=== PATIENT | male | born 1945 | race Caucasian/White ===

== ENCOUNTER 2016-04-04 06:34 | Observation (INO) | payer MEDICARE, OTHER ==
--- NOTE | ~2016-04-04 | HP ---
History And Physical [place] [id number] [facility] [place]. [address] NAME: ANAHY COTTER : 49 STATUS : ADM Марина PAT#: [id number] AGE: 70 ADM/REG DATE : 04/04/16 MR#: [id number] REPORT SERV DATE: 04/04/16 DICTATED BY: JESSE HERNADEZ DATE: 04/04/16 REPORT STATUS : Draft TRANSCRIBED BY: MODEboni DATE: 04/04/16 DATE OF ADMISSION: 04/04/2016 CHIEF COMPLAINT: Cough and wheezing. BRIEF HISTORY OF PRESENT ILLNESS: The patient is a 70-year-old white male who presented to [facility]'s Emergency Room early this morning with complaints of having cough that has been going on for 24 hours that started all of a sudden. He denied he has had some productive sputum, yellowish in color. He denied any fever or chills. He has not had any nausea or vomiting. He said he has been noticing a lot of wheezing mainly on the left side. He denied any new chest pain. He has had chronic chest pain due to his ischemic cardiomyopathy. When he came to the emergency room, he was saturating normal about 94% on room air. However, the emergency room physician felt that he could not go home because of his wheezing. So he has been referred to the Hospitalist Service for further treatment and evaluation. REVIEW OF SYSTEMS: Twelve-point review of systems was obtained from the patient and is negative except what is noted in the HPI. PAST MEDICAL HISTORY: Obtained from the patient and has reviewed from old medical records. The patient has coronary artery disease, chronic kidney disease stage 3, [id number] MR, history of lung cancer status post lung resection. He has testicular cancer, status post resection. Dyslipidemia. Bipolar disorder. COPD. Peripheral vascular disease with an iliac stent. He has hyperlipidemia. 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 He had prior myocardial infarction. He has ischemic cardiomyopathy, diverticulosis, gastroesophageal reflux, chronic systolic congestive heart failure that has been compensated. He is hard-of- hearing. Renal calculi and Moreau's esophagus. PRIOR SURGICAL HISTORY: Significant for coronary artery bypass graft in 1993 and iliac stent, left lower lobectomy for non-small cell cancer in T2a N0 M0. Previous cholecystectomy, ERCP with a biliary stent. 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 He is a former smoker of up to two packs per day for 45 years. ALLERGIES: NO KNOWN DRUG ALLERGIES. HOME MEDICATIONS: Lasix 80 mg once daily, Coreg 12.5 mg twice daily, Plavix 75 mg once daily, Nitrostat 0.4 sublingual p.r.n., Crestor 10 mg once daily, Zetia 10 mg once daily, Ranexa 500 mg twice daily, clonidine 0.1 mg twice daily, diltiazem ER 240 mg once daily, Dexilant 60 mg twice daily, Advair Diskus 250/50 inhalation 1 puff daily, Spiriva Respimat 2.5 mg daily, Ventolin HFA 90 mcg as needed, Xanax 0.5 mg three times and as needed for panic attacks. Risperdal 1 mg once daily, testosterone injection 400 mg bi-monthly, aspirin 81 mg once daily, vitamin D 5000 units once daily, probiotics once daily, folic acid plus History And Physical [address] [address] NAME: ANAHY COTTER : 49 STATUS : ADM Марина PAT#: [id number] AGE: 70 ADM/REG DATE : 04/04/16 MR#: [id number] REPORT SERV DATE: 04/04/16 DICTATED BY: JESSE HERNADEZ DATE: 04/04/16 REPORT STATUS : Draft TRANSCRIBED BY: PAZ DATE: 04/04/16 once daily, and magnesium oxide 400 mg twice daily. PHYSICAL EXAMINATION: GENERAL: White male, sitting on the bed, appears to be in no obvious respiratory distress but he is awake, alert. He is oriented. VITAL SIGNS: Blood pressure is 132/67, saturation of 95% on room air, temperature is 97.5 and a pulse of 69. HEENT: Head is normocephalic, atraumatic. Pupils are equal, round, and reactive to light. Extraocular muscles are intact. Sclerae anicteric. Conjunctivae normal. Oropharynx without lesion. Tongue protrusion midline. Uvula midline. NECK: Supple. No jugular venous distention. No carotid bruits or thyromegaly is appreciated. No lymphadenopathy in the neck is palpable. HEART: Distant PMI, just inside the anterior axillary line. Regular rate and rhythm. No significant gallops or rubs. Soft 2/6 systolic murmur, best heard in the precordial space. LUNGS: Diffuse bilateral wheezing with no evidence of any focal consolidation. Rhonchi are noted. No rales or crackles. ABDOMEN: Obese, soft, nontender, good bowel sounds. No rebound or guarding. No organomegaly. EXTREMITIES: Without cyanosis, clubbing. Trace flynn-ankle edema is noted. NEUROLOGIC: Cranial nerves 2 through 12 are normal. Strength is equal and symmetrical. Sensory exam appears to be intact. LABS: Chest x-ray, my own interpretation, shows no evidence of any acute cardiopulmonary disease. Cardiac silhouette appears to be normal. No evidence of pleural effusion. ABG was not done in the emergency room. CMP: Sodium 136, potassium 3.6, chloride 96, bicarb 28, BUN 20, creatinine 1.98, glucose is 104. Total protein is normal. Calcium is normal. Albumin is 3.4. Liver function studies are normal. Influenza was negative. CBC: White count is 5.8, hemoglobin 13.5, hematocrit of 41, platelet count is 160,000. No left shift. Blood cultures sent from the emergency room. EKG, normal sinus rhythm, biphasic P wave in the lateral leads. Left axis deviation, nonspecific ST-T wave changes. IMPRESSION: 1. Acute bronchitis. 2. Acute exacerbation of chronic obstructive pulmonary disease. 3. Acute on chronic kidney injury. 4. Ischemic cardiomyopathy. 5. Bipolar disorder. 6. Hypertension. 7. Hyperlipidemia. 8. Gastroesophageal reflux. 9. History of lung cancer. PLAN: The patient will be admitted for observation. Aggressive nebulizing treatments will be given. IV Solu-Medrol will be given. IV Levaquin will be given despite the fact that he had had prior history of C. difficile colitis. We will continue his probiotics while we treat his upper respiratory tract infection. Antitussives will be given. Home medications will be addressed when available from the pharmacy. Full code. History And Physical [place] [id number] [facility] [place]. [address] NAME: ANAHY COTTER : 49 STATUS : ADM Марина PAT#: [id number] AGE: 70 ADM/REG DATE : 04/04/16 MR#: [id number] REPORT SERV DATE: 04/04/16 DICTATED BY: JESSE HERNADEZ DATE: 04/04/16 REPORT STATUS : Draft TRANSCRIBED BY: MODEboni DATE: 04/04/16 MAGDALENO/PAZ Jesse Hernadez M.D. / [id number] CC: Ubaldo Ferrell M.D.
--- NOTE | ~2016-04-04 | DS ---
Discharge Summary [facility] [address] [place]. [address] NAME: ANAHY COTTER : 49 STATUS : DIS Марина PAT#: [id number] AGE: 70 ADM/REG DATE : 04/04/16 MR#: [id number] REPORT SERV DATE: 04/06/16 DICTATED BY: JR. GOMEZ WILLIAM JOHN DATE: 04/05/16 REPORT STATUS : Draft TRANSCRIBED BY: PAZ DATE: 04/05/16 ADMISSION DATE: 04/04/2016 DISCHARGE DATE: 04/05/2016 DISCHARGE DIAGNOSES: Include: 1. Acute bronchitis. 2. Acute exacerbation of chronic obstructive pulmonary disease. 3. Acute on chronic kidney disease. 4. Ischemic cardiomyopathy. 5. Bipolar disorder. 6. Hypertension. 7. Hyperlipidemia. 8. Gastroesophageal reflux disease. 9. History of lung cancer, status post lobectomy. OPERATIONS, PROCEDURES, AND TREATMENTS: Include: 1. Portable chest x-ray done 04/04/2016, which showed stable surgical changes in left lung with left apical staple lines and probable scarring in the mid left lung. No new air space with opacification was seen. 2. PA and lateral chest x-ray done 04/04/2016 showed cardiomegaly with prior CABG changes. No other changes. 3. Blood cultures x2 are negative at this time. DISCHARGE MEDICATIONS: Include: 1. Aspirin 81 mg orally daily. 2. Coreg 12.5 mg orally twice a day. 3. Plavix 75 mg daily. 4. Diltiazem 240 mg orally daily. 5. Zetia 10 mg orally daily. 6. Lasix 80 mg orally daily. 7. Levaquin 750 mg orally daily for four more days. 8. Dexilant 60 mg orally twice a day. 9. Ranexa 500 mg orally twice a day. 10.Risperdal 1 mg orally daily. 11.Clonidine 0.1 mg orally at bedtime. 12.Advair Diskus one puff daily. 13.Albuterol high-flow aerosol two puffs as needed. 14.Albuterol nebulized every six hours as needed. 15.Nitroglycerin 0.4 mg sublingually as needed. 16.Rosuvastatin 10 mg orally at bedtime. 17.Xanax 0.5 mg orally at bedtime as needed. 18.Vitamin D 5000 units orally daily. 19.Mag-Ox 400 mg orally daily. 20.Spiriva Respimat 2.5 mcg inhaled daily. 21.Prednisone 40 mg orally daily for two days, then 20 for two days, then 10 for two days, then none. Discharge Summary [facility] [address] [place]. [address] NAME: ANAHY COTTER : 49 STATUS : DIS Марина PAT#: [id number] AGE: 70 ADM/REG DATE : 04/04/16 MR#: [id number] REPORT SERV DATE: 04/06/16 DICTATED BY: JR. GOMEZ WILLIAM JOHN DATE: 04/05/16 REPORT STATUS : Draft TRANSCRIBED BY: MODL DATE: 04/05/16 22.Levaquin 750 mg orally daily for four more days. HOSPITAL COURSE: The patient was a 70-year-old white male, presented to [facility] emergency room on 04/04/2016 with complaint of cough that had been going on for 24 hours. He had some production of yellow sputum. He denies any fevers or chills, no nausea or vomiting, and a lot of wheezing mainly on the left side, he had chronic chest pain due to ischemic cardiomyopathy. Please see Dr. Hernadez's excellent dictated history and physical for complete details of the admission history, physical, and presenting data. The patient was admitted to the hospital. He was given nebulizer treatments, IV steroids, and started empirically on Levaquin. The patient felt dramatically better on hospital day #2. He required no oxygen. The patient will be discharged home on a quick steroid taper and oral Levaquin and will follow up with his primary care physician, Ernesto Cheema, in two weeks. For discharge exam and laboratory, please see daily progress note. DISCHARGE DIET: Regular. ACTIVITY: As tolerated. WJF/PAZ Ramone Gomez Jr, MD / [id number] CC: Ramone Gomez Jr, MD Christopher Haddock, M.D.
[2016-04-04 06:29] LABS: BASOPHILS 0.3 %; BASOPHILS ABSOLUTE 0.02 10/3/uL (0.0-0.16); EOSINOPHILS ABSOLUTE 0.06 10/3/uL (0.0-0.53); ER CBC TAT 0 Hrs 10 Mins; HEMOGLOBIN 13.5 g/dL (13.6-17.8); IMMATURE GRANULOCYTES 0.3 %; IMMATURE GRANULOCYTES ABSOLUTE 0.02 10/3/uL (0.0-0.11); LYMPHOCYTES 10.6 %; LYMPHOCYTES ABSOLUTE 0.61 10/3/uL (0.67-4.30); MEAN CORPUS HGB CONC 32.5 g/dL (32.0-36.0); MEAN CORPUSCULAR HEMOGLOB 27.6 pg (26.0-34.0); MEAN PLATELET VOLUME 8.8 fL (9.2-13.0); MONOCYTES 7.6 %; MONOCYTES ABSOLUTE 0.44 10/3/uL (0.21-1.20); NEUTROPHILS 80.2 %; NEUTROPHILS ABSOLUTE 4.63 10/3/uL (2.02-8.40); PLATELET COUNT 160 10/3/uL (150-400); RBC DISTRIBUTION WIDTH 16.7 % (12.0-16.0); WHITE BLOOD CELLS 5.8 10/3/uL (4.5-10.5)
[2016-04-04 06:30] LABS: HEMATOCRIT 41.6 % (40.0-51.0); MANUAL DIFF NO %; MEAN CORPUSCULAR VOLUME 84.9 fL (80-100)
[~2016-04-04 06:34] MED LIST: ACET500CAP PO; ADVAIR250 INH; AFEDITAB30 MG PO; AMB10 PO; ASAB PO; AUG875 PO; CARDCD240 PO; CARTIA XT240 MG/24 PO; CAT1 PO; CENTRUM TAB1 TAB PO; CIP5 PO; CO Q-10100 MG PO; COENZYME Q10400 MG PO; COQ-10200 MG OR; COQ10100 MG OR; COQ10100 MG PO; COREG12 PO; COREG6 PO; CRESTOR10 PO; DEP250 PO; DEPAKOT250 PO; DEPAKOT500 PO; DEPAKOTEER PO; DEPO-TESTOS200 MG/M1 IM; DEPO-TESTOS200 MG/ML IM; FISH OIL1200 MG PO; FLAG500TAB PO; FOLINIC PLUS PO; FOLTANX TABLET1 EACH PO; IMDUR30 PO; KAPIDEX30 MG PO; KAPIDEX60 MG PO; L40 PO; L80 PO; LEVAQUIN5T PO; LEVAQUIN750 MG PO; LIBRAX PO; LIVALO; MAGOX4 PO; MELA3 PO; METANX PO; MUCOMYST; MUCOMYST PO; MULTIPLE VIT PO; NEUR100 PO; NEUR300 PO; NIACIN 500 PO; NIACOR500 MG PO; NITROQUICK0.4 MG SL; NITROSTAT0.4 MG SL; NORV5 PO; OXYGEN 2L; PLAVIX PO; PRAVACHOL40 MG PO; PROBIOTIC PO; PROTONIX PO; RAN500 PO; RED YEAS1 OR; RED YEAS1 PO; RISP1 PO; RISPERDAL0.25 MG PO; SAPHRIS10 MG SL; SAPHRIS5 MG SL; SPIRIVA INH; SPIRIVA RESPIMAT INH; TESTOST ENA200 MG/ML IM; TESTOSTERONE INJ; TESTOSTERONE INJECTI; TRILIPIX135 MG PO; VALIUM10 MG PO; VENTOLIN HFA INH; VIT B COMPLEX; VITAMIN D31000 UNIT PO; X5 PO; ZETIA PO; [UNRECOGNIZED DRUG - OTHER]; [UNRECOGNIZED DRUG - OTHER]
[2016-04-04 06:38] LABS: INFLUENZA A SCREEN NEGATIVE (NEGATIVE); INFLUENZA B SCREEN NEGATIVE (NEGATIVE)
[2016-04-04 06:42] LABS: A/G RATIO 0.8 (0.7-1.9); ALBUMIN 3.4 G/DL (3.5-5.0); ALKALINE PHOSPHATASE 77 U/L (45-117); CALCIUM, SERUM 8.7 MG/DL (8.5-10.4); CHLORIDE, SERUM 94 MMOL/L (96-112); CO2 (CARBON DIOXIDE) 28 MMOL/L (24-34); CREATININE 1.98 MG/DL (0.70-1.30); GFR AFRICAN AMERICAN 39 ML/MIN (>=60); GFR NON AFRICAN AMERICAN 34 ML/MIN (>=60); GLOBULIN 4.5 G/DL (2.5-4.1); GLUCOSE, SERUM 104 MG/DL (60-99); POTASSIUM, SERUM 3.6 MMOL/L (3.5-5.3); SGOT(AST) 41 U/L (5-40); SGPT(ALT) 41 U/L (5-65); SODIUM, SERUM 136 MMOL/L (135-148); TOTAL BILIRUBIN 0.6 MG/DL (0-1.2)
[2016-04-04 06:44] LABS: BUN (BLOOD UREA NITROGEN) 20 MG/DL (6-23); TOTAL PROTEIN 7.9 G/DL (6.0-8.5)
[2016-04-04] MEDS ORDERED: COREG12 PO (09:15)
[2016-04-04] MEDS ORDERED: L40 PO (09:15)
[2016-04-04] MEDS ORDERED: ZETIA PO (09:16)
[2016-04-04] MEDS ORDERED: PLAVIX PO (09:16)
[2016-04-04] MEDS ORDERED: NITROSTAT0.4 MG SL (09:16)
[2016-04-04] MEDS ORDERED: CRESTOR10 PO (09:16)
[2016-04-04] MEDS ORDERED: RAN500 PO (09:16)
[2016-04-04] MEDS ORDERED: KAPIDEX60 MG PO (09:17)
[2016-04-04] MEDS ORDERED: ADVAIR250 INH (09:17)
[2016-04-04] MEDS ORDERED: CAT1 PO (09:17)
[2016-04-04] MEDS ORDERED: DILT-XR240 MG PO (09:17)
[2016-04-04] MEDS ORDERED: X5 PO (09:18)
[2016-04-04] MEDS ORDERED: VENTOLIN HFA PO (09:18)
[2016-04-04] MEDS ORDERED: RISP1 PO (09:19)
[2016-04-04] MEDS ORDERED: ASAB PO (09:19)
[2016-04-04] MEDS ORDERED: TESTOST CYP100 MG/ML IM (09:19)
[2016-04-04] MEDS ORDERED: D 5000 PO (09:20)
[2016-04-04] MEDS ORDERED: FOLINIC PLUS PO (09:20)
[2016-04-04] MEDS ORDERED: MAGOX4 PO (09:20)
[2016-04-04] MEDS ORDERED: ALIGN4 MG PO (09:20)
[2016-04-04] MEDS ORDERED: ALBUTEROL5 INH (09:21)
[2016-04-04] MEDS ORDERED: SPIRIVA RESPIMAT INH (09:22)
[2016-04-04 15:26] LABS: PROCALCITONIN 0.06 ng/mL (<0.5)
[2016-04-05 04:11] LABS: BASOPHILS 0 %; EOSINOPHILS 0 %; HEMATOCRIT 37.5 % (40.0-51.0); HEMOGLOBIN 12.3 g/dL (13.6-17.8); IMMATURE GRANULOCYTES 0.2 %; IMMATURE GRANULOCYTES ABSOLUTE 0.01 10/3/uL (0.0-0.11); LYMPHOCYTES 10.4 %; LYMPHOCYTES ABSOLUTE 0.56 10/3/uL (0.67-4.30); MEAN CORPUS HGB CONC 32.8 g/dL (32.0-36.0); MEAN PLATELET VOLUME 8.5 fL (9.2-13.0); MONOCYTES 4.5 %; MONOCYTES ABSOLUTE 0.24 10/3/uL (0.21-1.20); NEUTROPHILS 84.9 %; NEUTROPHILS ABSOLUTE 4.56 10/3/uL (2.02-8.40); PLATELET COUNT 151 10/3/uL (150-400); RBC DISTRIBUTION WIDTH 16.3 % (12.0-16.0); RED CELL COUNT 4.56 10/6/uL (4.7-6.1); WHITE BLOOD CELLS 5.4 10/3/uL (4.5-10.5)
[2016-04-05 04:13] LABS: MANUAL DIFF NO %; MEAN CORPUSCULAR VOLUME 82.2 fL (80-100)
[2016-04-05 04:25] LABS: ALBUMIN 3.2 G/DL (3.5-5.0); BUN (BLOOD UREA NITROGEN) 21 MG/DL (6-23); CALCIUM, SERUM 8.6 MG/DL (8.5-10.4); CHLORIDE, SERUM 100 MMOL/L (96-112); CO2 (CARBON DIOXIDE) 26 MMOL/L (24-34); CREATININE 1.63 MG/DL (0.70-1.30); GFR AFRICAN AMERICAN 49 ML/MIN (>=60); GFR NON AFRICAN AMERICAN 43 ML/MIN (>=60); PHOSPHORUS, SERUM 2.1 MG/DL (2.5-4.5); POTASSIUM, SERUM 4.2 MMOL/L (3.5-5.3); SODIUM, SERUM 136 MMOL/L (135-148)
[2016-04-05 04:28] LABS: GLUCOSE, SERUM 173 MG/DL (60-99)
[2016-04-05] MEDS ORDERED: LEVAQUIN750 MG PO (12:42)
[2016-04-05] MEDS ORDERED: P20 PO (12:45)
[2016-04-21] MEDS ORDERED: D 5000 PO (13:39)
[2016-07-20] MEDS ORDERED: COREG3 PO (14:03)
[2016-07-20] MEDS ORDERED: L40 PO (14:03)
[2016-07-20] MEDS ORDERED: PLAVIX PO (14:05)
[2016-07-20] MEDS ORDERED: NITROSTAT0.4 MG SL (14:06)
[2016-07-20] MEDS ORDERED: RAN500 PO (14:07)
[2016-07-20] MEDS ORDERED: CRESTOR10 PO (14:07)
[2016-07-20] MEDS ORDERED: ZETIA PO (14:07)
[2016-07-20] MEDS ORDERED: TIAZAC PO (14:08)
[2016-07-20] MEDS ORDERED: KAPIDEX60 MG PO (14:08)
[2016-07-20] MEDS ORDERED: FLOMAX4 PO (14:09)
[2016-07-20] MEDS ORDERED: SPIRIVA RESPIMAT INH (14:10)
[2016-07-20] MEDS ORDERED: ADVAIR250 INH (14:10)
[2016-07-20] MEDS ORDERED: VENTOLIN HFA INH (14:11)
[2016-07-20] MEDS ORDERED: X5 PO ×2 (14:12→14:13)
[2016-07-20] MEDS ORDERED: TESTOSTERONE INJ SC (14:15)
[2016-07-20] MEDS ORDERED: ALBUTEROL0.083 % INH (14:16)
[2016-07-20] MEDS ORDERED: ASAB PO (14:16)
[2016-07-20] MEDS ORDERED: VITAMIN D31000 UNIT PO (14:16)
[2016-07-20] MEDS ORDERED: ALIGN4 MG PO (14:17)
[2016-07-20] MEDS ORDERED: FOLBEE PO (14:19)
[2016-07-20] MEDS ORDERED: MAGOX4 PO (14:19)
[2016-07-27] MEDS ORDERED: L40 PO (10:11)
[2016-07-27] MEDS ORDERED: COREG6 PO (10:11)
[2016-08-27] MEDS ORDERED: TOPXL25 PO (11:48)
[2016-08-27] MEDS ORDERED: PROAMAT5 PO (11:49)
[2016-08-27] MEDS ORDERED: [UNRECOGNIZED DRUG - OTHER] (11:55)
[2016-08-27] MEDS ORDERED: MEDS (12:22)
[2016-08-27] MEDS ORDERED: X5 PO (12:27)
[2016-10-08] MEDS ORDERED: L20 PO (21:55)
[2016-10-08] MEDS ORDERED: PROAMATINE10 MG PO (21:56)
[2016-10-08] MEDS ORDERED: TOPXL25 PO (21:56)
[2016-10-08] MEDS ORDERED: PLAVIX PO (21:57)
[2016-10-08] MEDS ORDERED: NITROSTAT0.4 MG SL (21:57)
[2016-10-08] MEDS ORDERED: ZETIA PO (21:58)
[2016-10-08] MEDS ORDERED: RAN500 PO (21:58)
[2016-10-08] MEDS ORDERED: CRESTOR10 PO (21:58)
[2016-10-08] MEDS ORDERED: FLOMAX4 PO (21:59)
[2016-10-08] MEDS ORDERED: KAPIDEX60 MG PO (21:59)
[2016-10-08] MEDS ORDERED: ADVAIR250 INH (21:59)
[2016-10-08] MEDS ORDERED: VENTOLIN HFA INH (22:00)
[2016-10-08] MEDS ORDERED: SPIRIVA RESPIMAT INH (22:00)
[2016-10-08] MEDS ORDERED: X5 PO ×2 (22:01→22:02)
[2016-10-08] MEDS ORDERED: TESTOST CYP100 MG/ML IM (22:07)
[2016-10-08] MEDS ORDERED: HALF81 PO (22:11)
[2016-10-08] MEDS ORDERED: ALBUTEROL0.083 % INH (22:11)
[2016-10-08] MEDS ORDERED: VITAMIN D31000 UNIT PO (22:12)
[2016-10-08] MEDS ORDERED: PROBIOTIC PO (22:12)
[2016-10-08] MEDS ORDERED: [UNRECOGNIZED DRUG - OTHER] PO (22:14)
[2016-10-08] MEDS ORDERED: MAGOX4 PO (22:14)
[2016-10-08] MEDS ORDERED: MYRBETRIQ50 MG PO (22:16)
[2016-10-08] MEDS ORDERED: SEPTRA DS1 TAB PO (22:17)
[2016-10-08] MEDS ORDERED: LAM250 PO (22:18)
[2016-10-18] MEDS ORDERED: FLUCON2 PO (15:30)
[2016-10-18] MEDS ORDERED: DSS PO (15:30)
[2016-10-18] MEDS ORDERED: NEUR100 PO (15:32)
[2016-10-18] MEDS ORDERED: CORTOTSUSP OT (15:38)
[2016-10-18] MEDS ORDERED: MIRALAX POWDER1 PKT PO (15:38)
[2016-10-18] MEDS ORDERED: FLORASTOR250 MG PO (15:39)
[2016-10-18] MEDS ORDERED: SENTAB PO (15:40)
[2016-10-18] MEDS ORDERED: VALTREX5 PO (15:42)
[2016-10-18] MEDS ORDERED: P10 PO ×3 (15:45→15:57)
[2016-10-18] MEDS ORDERED: P20 PO ×2 (15:52→15:56)
[2016-10-18] MEDS ORDERED: P5 PO (15:58)
== END 2016-04-05 14:20 | disposition home or self-care (01) ==
LOC: ER 06:34 → CDU2 09:11 → CDU1 09:32
PROVIDERS: Emergency Medicine; Internal Medicine
DX: J44.0 Chronic obstructive pulmonary disease with (acute) lower respiratory infection (principal); J20.9 Acute bronchitis, unspecified; J44.1 Chronic obstructive pulmonary disease with (acute) exacerbation; N17.9 Acute kidney failure, unspecified; N18.9 Chronic kidney disease, unspecified; I13.10 Hypertensive heart and chronic kidney disease without heart failure, with stage 1 through stage 4 chronic kidney disease, or unspecified chronic kidney disease; F31.9 Bipolar disorder, unspecified; E78.5 Hyperlipidemia, unspecified; K21.9 Gastro-esophageal reflux disease without esophagitis; H91.90 Unspecified hearing loss, unspecified ear; E78.00 Pure hypercholesterolemia, unspecified; K44.9 Diaphragmatic hernia without obstruction or gangrene; D64.9 Anemia, unspecified; Z79.82 Long term (current) use of aspirin; Z79.02 Long term (current) use of antithrombotics/antiplatelets; Z79.899 Other long term (current) drug therapy; Z79.52 Long term (current) use of systemic steroids; Z98.890 Other specified postprocedural states; Z87.442 Personal history of urinary calculi
CPT/HCPCS: 71010; 71020; 80053; 80069; 83880; 84145; 85025; 87040; 87449; 87804; 93005; 94640; 96365; 96372; 96375; 99285; A9270-GY; G0378; J1956; J2930

== ENCOUNTER 2016-04-06 23:34 | Inpatient (IN) | payer MEDICARE, OTHER ==
--- NOTE | ~2016-04-06 | HP ---
History And Physical [facility] [address] [place]. [address] NAME: ANAHY COTTER : 49 STATUS : ADM Марина PAT#: [id number] AGE: 70 ADM/REG DATE : 04/07/16 MR#: [id number] REPORT SERV DATE: 04/07/16 DICTATED BY: ANGEL COLE DATE: 04/07/16 REPORT STATUS : Draft TRANSCRIBED BY: MODEboni DATE: 04/07/16 DATE OF ADMISSION: 04/06/2016 POINT OF ENTRY: [facility] Emergency Department. PRIMARY INTELLECTUAL PROPERTY MANAGER: Dr. Chris Dick. PRIMARY PIANO REFINISHER: Dr. Matthew. CHIEF COMPLAINT: Shortness of breath, cough, and congestion. HISTORY OF PRESENT ILLNESS: The patient is a 70-year-old gentleman with history of COPD, not on home oxygen as well as coronary artery disease, chronic kidney disease stage III, baseline creatinine 1.4-1.7, chronic systolic congestive heart failure and other medical comorbidities, who presents to the emergency department today with persistent and worsening cough shortness of breath, chest congestion as well as chest tightness. The patient was admitted to the Hospitalist Service from 04/04 through 04/05 for an acute COPD exacerbation. The patient states that upon discharge he was feeling much improved, however, his symptoms have not completely resolved. Upon discharge, the patient reports compliance with his Levaquin as well as prednisone prescriptions; however, he noticed persistent worsening shortness of breath, nonproductive cough, chest congestion as well as tightness and wheezing. Initial evaluation in the emergency department for a chest x-ray is unremarkable. ABG well compensated on 2 L of nasal cannula. He was noted to be mildly hypoxemic on room air. Other labs are for a mildly elevated creatinine above his baseline. The patient was subsequently admitted to the Hospitalist Service for further evaluation and management. The patient denies any recent fevers, night sweats, chills, chest pain, palpitations, abdominal pain, nausea, vomiting, diarrhea, constipation, dysuria, lower extremity edema, melena, hematochezia, hemoptysis, or hematemesis. REVIEW OF SYSTEMS: Comprehensive system is otherwise negative unless listed in history of present illness. PAST MEDICAL HISTORY: 1. COPD, not on home oxygen. 2. Coronary artery disease status post coronary artery bypass grafting. 3. Chronic systolic congestive heart failure. Most recent ejection fraction reported to be 30-35%. 4. Chronic kidney stage III, baseline creatinine 1.4 to 1.7. 5. History of lung cancer, status post resection. 6. Hypertension. 7. Hyperlipidemia. 8. Peripheral vascular disease. History And Physical [place] [address] [place]. [address] NAME: ANAHY COTTER : 49 STATUS : ADM Марина PAT#: [id number] AGE: 70 ADM/REG DATE : 04/07/16 MR#: [id number] REPORT SERV DATE: 04/07/16 DICTATED BY: ANGEL COLE DATE: 04/07/16 REPORT STATUS : Draft TRANSCRIBED BY: PAZ DATE: 04/07/16 9. History of testicular cancer status post resection. 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 11.Gastroesophageal reflux disease. 12.Bipolar disease. 13.Right vertebral artery occlusion. SURGICAL HISTORY: 1. Coronary artery bypass grafting. 2. Left lower lung lobectomy. 3. ERCP. 4. Cholecystectomy. 5. Iliac stent placement. ALLERGIES: NO KNOWN DRUG ALLERGIES. HOME MEDICATIONS: 1. Albuterol two puffs inhalation p.r.n. 2. Xanax 1 mg at bedtime. 3. Aspirin 81 mg at bedtime. 4. Carvedilol 12.5 mg b.i.d. 5. Vitamin D 5000 units daily. 6. Clonidine 0.1 mg at bedtime. 7. Plavix 75 mg daily. 8. Dexilant 60 mg b.i.d. 9. Diltiazem ER 240 mg daily. 10.Zetia 10 mg at bedtime. 11.Advair one puff inhalation daily. 12.Lasix 80 mg b.i.d. 13.Levaquin 750 mg daily. 14.Magnesium oxide 400 mg daily. 15.Align probiotic one tab daily. 16.Nitroglycerin 0.4 mg sublingual p.r.n. 17.Prednisone taper. 18.Ranexa 500 mg b.i.d. 19.Risperdal 1 mg at bedtime. 20.Rosuvastatin 10 mg at bedtime. 21.Testosterone 400 mg intramuscular every two weeks. 22.Spiriva two puffs inhalation daily. 23.Folinic Plus one tab at bedtime. SOCIAL HISTORY: Denies any tobacco, alcohol, or illicits. Former smoker, quit greater years ago. FAMILY MEDICAL HISTORY: Mother in her 50s with cerebrovascular accident. Father in his 40s or 50s of coronary artery disease. Sibling also at an early age of coronary artery disease. History And Physical [place] [address] [place]. [address] NAME: ANAHY COTTER : 49 STATUS : ADM Марина PAT#: [id number] AGE: 70 ADM/REG DATE : 04/07/16 MR#: [id number] REPORT SERV DATE: 04/07/16 DICTATED BY: ANGEL COLE DATE: 04/07/16 REPORT STATUS : Draft TRANSCRIBED BY: PAZ DATE: 04/07/16 LABS AND IMAGIN. White count 9.9, hemoglobin 13.4, hematocrit 39.8 platelet count is 198 and INR is 1.0. 2. Sodium is 136, potassium 4.3, chloride 95, carbon dioxide 28, BUN 41, creatinine 2.27, glucose is 151, calcium is 9.1, magnesium 2.0. 3. Troponin is less than 0.02. BNP is 155. 4. Chest x-ray per my review shows poor inspiration on a portable technique; however, I do not appreciate any acute cardiopulmonary abnormality. 5. ABGs pH is 7.41, pCO2 is 44, PO2 88, bicarb is 27, saturating 96% on 2 L of cannula. PHYSICAL EXAMINATION: GENERAL: The patient is awake, alert, in no acute distress, resting comfortably. He is a well-developed, well-nourished, elderly male. HEENT: Atraumatic and normocephalic. Moist mucous membranes. Pupils are equal, round, reactive to light and accommodation. Extraocular eye movements are intact. No scleral icterus. NECK: No jugular venous distention. No carotid bruits. CARDIAC: Regular rate and rhythm. No murmurs, rubs, or gallops. Normal S1, S2. LUNGS: On oxygen, but in no distress. Does have prolonged respiratory phase in all lung worthy with some decreased breath sounds at bases with diffuse inspiratory and end- expiratory wheezes in all lung worthy. ABDOMEN: Soft, nontender, nondistended with good bowel sounds. No rebound, guarding, or rigidity. EXTREMITIES: Warm and perfused. No cyanosis, clubbing, or edema. SKIN: Warm and dry. PSYCH: Affect appropriate. Neurologic: Alert, oriented x3. Cranial nerves 2 through 12 are grossly intact. Speech is normal. Gait is not assessed. ASSESSMENT AND PLAN: The patient is a 70-year-old gentleman, who recently admitted for chronic obstructive pulmonary disease exacerbation who unfortunately is returned after less than two days with worsening symptoms of shortness of breath, wheezing, congestion and tightness. PROBLEM LIST: 1. Acute COPD exacerbation. 2. Hypoxemia. 3. Acute kidney injury on chronic kidney stage III. 4. Chronic systolic congestive heart failure. PLAN: 1. Acute COPD exacerbation, we will place patient back on high-dose IV Solu-Medrol as well as frequent bronchodilators with DuoNebs, Brovana, and Pulmicort as well as aggressive pulmonary toilet. 2. Acute kidney injury on chronic kidney stage III. Holding the patient's nephrotoxic medications primarily his Lasix at least overnight and checking urine lytes. We will repeat renal function panel in the morning. 3. Hypoxemia, the patient was mildly hypoxemic on room air. He has corrected while on 2 L by nasal cannula. We will attempt to wean as tolerated. History And Physical [address] [address] NAME: ANAHY COTTER : 49 STATUS : ADM Марина PAT#: [id number] AGE: 70 ADM/REG DATE : 04/07/16 MR#: [id number] REPORT SERV DATE: 04/07/16 DICTATED BY: ANGEL COLE DATE: 04/07/16 REPORT STATUS : Draft TRANSCRIBED BY: MODL DATE: 04/07/16 4. Chronic systolic congestive heart failure. The patient currently appears euvolemic at this time, holding his Lasix given worsening renal function. 5. DVT prophylaxis. Heparin subcu given renal dysfunction. CODE STATUS: The patient wishes to be full code. MARGARITO/ZAINAL Angel Cole MD / [id number] CC: Ernesto Cheema M.D. Garry Matthew Jr., M.D. C. Chris Dick M.D.
--- NOTE | ~2016-04-06 | DS ---
Discharge Summary [facility] [address] [facility] [place]. [address] NAME: ANAHY COTTER : 49 STATUS : DIS IN PAT#: [id number] AGE: 70 ADM/REG DATE : 04/07/16 MR#: [id number] REPORT SERV DATE: 04/14/16 DICTATED BY: RAPHAEL JUAREZ DATE: 04/12/16 REPORT STATUS : Draft TRANSCRIBED BY: MODL DATE: 04/12/16 ADMISSION DATE: 04/07/2016 DISCHARGE DATE: 04/12/2016 REASON FOR ADMISSION: Recurrent acute on chronic COPD exacerbation. HISTORY OF PRESENT ILLNESS: Please refer to Dr. Ramey's history and physical dated 04/07/2016 for complete details regarding the patient's admission. In brief, the patient was admitted to Hospitalist Service for management of acute on chronic COPD exacerbation. HOSPITAL COURSE: The patient had an uncomplicated hospital course. He was just discharged from our service for COPD exacerbation after one-two day hospitalization and returned back to the hospital within a few days having significant wheezing. He was started on IV steroids by Dr. Ramey and antibiotics. I switched him over to p.o. prednisone. We had weaned him off oxygen throughout the hospitalization. Given his significant wheezing, we obtained a culture of his sputum, which showed growth of normal leonarda. A CT scan of his chest was done without contrast, which showed stable postoperative changes in the left upper lobe. No recurrent disease. There is a dilated left ventricle. No acute pulmonary disease. Troponin was negative. Blood cultures were negative. His COPD exacerbation took some time to resolve. He has gotten several days now worth of steroids. We again have weaned him off oxygen at rest. He has certainly improved since he presented with us to the hospital. He is ambulating in the halls without any oxygen at this point. On the day of discharge, he does have some mild wheezing, but he has reached maximal hospitalization. The patient also presented with acute kidney injury on CKD, stage III, likely secondary to diuretics. The patient states that he has been having to increase his diuretics according to his Cardiology and blueprint trimmer. He was up to 160 mg once a day. He presented to the hospital with a creatinine of 2.27 and he was discharged with a creatinine of 1.63. His nephrotoxic agents were held on admission. He was given IV fluids and his creatinine has come down to 1.7 on the day of discharge. The patient will be discharged home today in a stable condition. We will test him and see if he qualifies for home O2 and make the appropriate arrangements if he does. He will follow up with his other physicians. Given that he came in with BRUCE on CKD, stage III, his blood pressure medicines were readjusted. We added hydralazine and Imdur. With these additions, his blood pressure has remained excellent with a systolic blood pressure in the 110s to 120s. DISCHARGE DIAGNOSES: Acute on chronic chronic obstructive pulmonary disease exacerbation; acute kidney injury on chronic kidney disease, stage III, now resolved; chronic systolic heart failure; hyperlipidemia; peripheral vascular disease; generalized anxiety disorder; hypertension; coronary artery disease, status post coronary artery bypass graft; history of lung cancer, status post lobectomy; possible hypoxic insufficiency, now resolved; and bipolar. PROCEDURES: Include CT scan of chest without contrast and chest x-ray. DISCHARGE MEDICATIONS: Include aspirin 81 mg at bedtime; Coreg 12.5 mg daily; Plavix 75 mg daily; vitamin D; diltiazem XR 240 mg daily; Zetia 10 mg at bedtime; Lasix 40 mg daily; Discharge Summary [place] [id number] [place]. [address] NAME: ANAHY COTTER : 49 STATUS : DIS IN PAT#: [id number] AGE: 70 ADM/REG DATE : 04/07/16 MR#: [id number] REPORT SERV DATE: 04/14/16 DICTATED BY: RAPHAEL JUAREZ DATE: 04/12/16 REPORT STATUS : Draft TRANSCRIBED BY: PAZ DATE: 04/12/16 magnesium oxide 400 mg daily; Dexilant 60 mg twice a day; Imdur 30 mg daily; Ranexa 500 mg twice a day; Risperdal 1 mg at bedtime; Catapres 0.1 mg at bedtime; hydralazine 50 mg every eight hours; prednisone 40 mg for two days, then 20 mg for two days, then 10 mg two days and then discontinue; Advair 250/50 one puff daily; Ventolin p.r.n.; nitroglycerin p.r.n. chest pain' Spiriva two puffs daily; testosterone; Xanax 1 mg at bedtime plus p.r.n.; and Crestor 10 mg at bedtime. Spending over 30 minutes in discharge planning and coordination of care. MALLIKA/PAZ Raphael Juarez MD / [id number] CC: MD Ernesto Alejandro M.D. C. Samuel Ledford, M.D. John Boldt Jr., M.D.
[~2016-04-06 23:34] MED LIST changes: +ALBUTEROL5 INH; +ALIGN4 MG PO; +D 5000 PO; +DILT-XR240 MG PO; +P20 PO; +TESTOST CYP100 MG/ML IM; +VENTOLIN HFA PO
[2016-04-07 01:32] LABS: BASOPHILS 0.1 %; BASOPHILS ABSOLUTE 0.01 10/3/uL (0.0-0.16); EOSINOPHILS 0 %; HEMATOCRIT 39.8 % (40.0-51.0); HEMOGLOBIN 13.4 g/dL (13.6-17.8); IMMATURE GRANULOCYTES 0.2 %; IMMATURE GRANULOCYTES ABSOLUTE 0.02 10/3/uL (0.0-0.11); LYMPHOCYTES 7.4 %; LYMPHOCYTES ABSOLUTE 0.73 10/3/uL (0.67-4.30); MEAN CORPUS HGB CONC 33.7 g/dL (32.0-36.0); MEAN CORPUSCULAR HEMOGLOB 28.2 pg (26.0-34.0); MEAN CORPUSCULAR VOLUME 83.8 fL (80-100); MEAN PLATELET VOLUME 8.8 fL (9.2-13.0); MONOCYTES 9.2 %; MONOCYTES ABSOLUTE 0.91 10/3/uL (0.21-1.20); NEUTROPHILS 83.1 %; NEUTROPHILS ABSOLUTE 8.22 10/3/uL (2.02-8.40); RBC DISTRIBUTION WIDTH 16.5 % (12.0-16.0); RED CELL COUNT 4.75 10/6/uL (4.7-6.1)
[2016-04-07 01:36] LABS: ER CBC TAT 0 Hrs 12 MinsNP; MANUAL DIFF NO %; PLATELET COUNT 198 10/3/uL (150-400); WHITE BLOOD CELLS 9.9 10/3/uL (4.5-10.5)
[2016-04-07 01:42] LABS: PARTIAL THROMBO TIME 25.1 SEC (22.5-37.2); PROTIME (NOT ORD) 13.5 SEC (12.0-14.5)
[2016-04-07 01:50] LABS: CALCIUM, SERUM 9.1 MG/DL (8.5-10.4); CHEST PAIN PROFILE TAT 0 Hrs 26 Mins; CHLORIDE, SERUM 95 MMOL/L (96-112); CO2 (CARBON DIOXIDE) 28 MMOL/L (24-34); GFR AFRICAN AMERICAN 33 ML/MIN (>=60); GFR NON AFRICAN AMERICAN 29 ML/MIN (>=60); GLUCOSE, SERUM 151 MG/DL (60-99); POTASSIUM, SERUM 4.3 MMOL/L (3.5-5.3); SODIUM, SERUM 136 MMOL/L (135-148); TROPONIN I <0.02 NG/ML (<0.05)
[2016-04-07 01:52] LABS: BUN (BLOOD UREA NITROGEN) 41 MG/DL (6-23); CREATININE 2.27 MG/DL (0.70-1.30)
[2016-04-07 02:44] LABS: BE (BASE EXCESS) 2.2 MEQ/L (0 +/- 2.5); DEVICE NC; HCO3 (ACTUAL BICARBONATE) 27.2 MEQ/L (23-27); HEMOBLOGIN CONTENT 13.7 G/DL (14-18); INSTRUMENT SERIAL # 8087; METHEMOGLOBIN 0.3 % (0-3); O2 CONTENT 18.3 VOL% (18-24); PCO2 (CO2 TENSION) 44 MMHG (35-45); PO2 (O2 TENSION) 88 MMHG (79-93); SAMPLE Arterial; pH 7.41 (7.37-7.43)
[2016-04-08 06:08] LABS: BASOPHILS 0.1 %; BASOPHILS ABSOLUTE 0.01 10/3/uL (0.0-0.16); EOSINOPHILS 0 %; HEMATOCRIT 38.7 % (40.0-51.0); HEMOGLOBIN 12.9 g/dL (13.6-17.8); IMMATURE GRANULOCYTES 0.3 %; IMMATURE GRANULOCYTES ABSOLUTE 0.02 10/3/uL (0.0-0.11); LYMPHOCYTES 11.1 %; LYMPHOCYTES ABSOLUTE 0.77 10/3/uL (0.67-4.30); MEAN CORPUS HGB CONC 33.3 g/dL (32.0-36.0); MEAN CORPUSCULAR HEMOGLOB 27.6 pg (26.0-34.0); MEAN CORPUSCULAR VOLUME 82.7 fL (80-100); MEAN PLATELET VOLUME 8.9 fL (9.2-13.0); MONOCYTES 4.8 %; MONOCYTES ABSOLUTE 0.33 10/3/uL (0.21-1.20); NEUTROPHILS 83.7 %; NEUTROPHILS ABSOLUTE 5.81 10/3/uL (2.02-8.40); PLATELET COUNT 208 10/3/uL (150-400); RBC DISTRIBUTION WIDTH 16.6 % (12.0-16.0); RED CELL COUNT 4.68 10/6/uL (4.7-6.1); WHITE BLOOD CELLS 6.9 10/3/uL (4.5-10.5)
[2016-04-08 06:11] LABS: ALBUMIN 3.4 G/DL (3.5-5.0); CALCIUM, SERUM 9.3 MG/DL (8.5-10.4); CHLORIDE, SERUM 92 MMOL/L (96-112); CO2 (CARBON DIOXIDE) 28 MMOL/L (24-34); GFR AFRICAN AMERICAN 33 ML/MIN (>=60); GFR NON AFRICAN AMERICAN 28 ML/MIN (>=60); GLUCOSE, SERUM 164 MG/DL (60-99); POTASSIUM, SERUM 4.2 MMOL/L (3.5-5.3); SODIUM, SERUM 133 MMOL/L (135-148)
[2016-04-08 06:12] LABS: BUN (BLOOD UREA NITROGEN) 53 MG/DL (6-23); PHOSPHORUS, SERUM 4.7 MG/DL (2.5-4.5)
[2016-04-08 06:18] LABS: MANUAL DIFF NO %
[2016-04-10 06:47] LABS: ALBUMIN 3.2 G/DL (3.5-5.0); BUN (BLOOD UREA NITROGEN) 55 MG/DL (6-23); CALCIUM, SERUM 8.9 MG/DL (8.5-10.4); CHLORIDE, SERUM 96 MMOL/L (96-112); CO2 (CARBON DIOXIDE) 32 MMOL/L (24-34); GFR AFRICAN AMERICAN 39 ML/MIN (>=60); GFR NON AFRICAN AMERICAN 33 ML/MIN (>=60); GLUCOSE, SERUM 146 MG/DL (60-99); PHOSPHORUS, SERUM 4.1 MG/DL (2.5-4.5); POTASSIUM, SERUM 4.6 MMOL/L (3.5-5.3); SODIUM, SERUM 136 MMOL/L (135-148)
[2016-04-11 05:20] LABS: CALCIUM, SERUM 9.2 MG/DL (8.5-10.4); CHLORIDE, SERUM 94 MMOL/L (96-112); CO2 (CARBON DIOXIDE) 33 MMOL/L (24-34); GFR AFRICAN AMERICAN 44 ML/MIN (>=60); GFR NON AFRICAN AMERICAN 38 ML/MIN (>=60); GLUCOSE, SERUM 138 MG/DL (60-99); PHOSPHORUS, SERUM 3.5 MG/DL (2.5-4.5); POTASSIUM, SERUM 4.1 MMOL/L (3.5-5.3); SODIUM, SERUM 136 MMOL/L (135-148)
[2016-04-11 05:25] LABS: BUN (BLOOD UREA NITROGEN) 51 MG/DL (6-23)
[2016-04-12 07:25] LABS: ALBUMIN 3.1 G/DL (3.5-5.0); BUN (BLOOD UREA NITROGEN) 44 MG/DL (6-23); CALCIUM, SERUM 9.4 MG/DL (8.5-10.4); CHLORIDE, SERUM 92 MMOL/L (96-112); CO2 (CARBON DIOXIDE) 35 MMOL/L (24-34); GFR AFRICAN AMERICAN 47 ML/MIN (>=60); GFR NON AFRICAN AMERICAN 41 ML/MIN (>=60); GLUCOSE, SERUM 127 MG/DL (60-99); PHOSPHORUS, SERUM 3.5 MG/DL (2.5-4.5); POTASSIUM, SERUM 4.1 MMOL/L (3.5-5.3); SODIUM, SERUM 134 MMOL/L (135-148)
[2016-04-12] MEDS ORDERED: IMDUR30 PO (12:34)
[2016-04-12] MEDS ORDERED: APRES50 PO (12:34)
[2016-04-21] MEDS ORDERED: D 5000 PO (13:39)
[2016-07-20] MEDS ORDERED: L40 PO (14:03)
[2016-07-20] MEDS ORDERED: COREG3 PO (14:03)
[2016-07-20] MEDS ORDERED: PLAVIX PO (14:05)
[2016-07-20] MEDS ORDERED: NITROSTAT0.4 MG SL (14:06)
[2016-07-20] MEDS ORDERED: ZETIA PO (14:07)
[2016-07-20] MEDS ORDERED: CRESTOR10 PO (14:07)
[2016-07-20] MEDS ORDERED: RAN500 PO (14:07)
[2016-07-20] MEDS ORDERED: TIAZAC PO (14:08)
[2016-07-20] MEDS ORDERED: KAPIDEX60 MG PO (14:08)
[2016-07-20] MEDS ORDERED: FLOMAX4 PO (14:09)
[2016-07-20] MEDS ORDERED: ADVAIR250 INH (14:10)
[2016-07-20] MEDS ORDERED: SPIRIVA RESPIMAT INH (14:10)
[2016-07-20] MEDS ORDERED: VENTOLIN HFA INH (14:11)
[2016-07-20] MEDS ORDERED: X5 PO ×2 (14:12→14:13)
[2016-07-20] MEDS ORDERED: TESTOSTERONE INJ SC (14:15)
[2016-07-20] MEDS ORDERED: ALBUTEROL0.083 % INH (14:16)
[2016-07-20] MEDS ORDERED: ASAB PO (14:16)
[2016-07-20] MEDS ORDERED: VITAMIN D31000 UNIT PO (14:16)
[2016-07-20] MEDS ORDERED: ALIGN4 MG PO (14:17)
[2016-07-20] MEDS ORDERED: FOLBEE PO (14:19)
[2016-07-20] MEDS ORDERED: MAGOX4 PO (14:19)
[2016-07-27] MEDS ORDERED: L40 PO (10:11)
[2016-07-27] MEDS ORDERED: COREG6 PO (10:11)
[2016-08-27] MEDS ORDERED: TOPXL25 PO (11:48)
[2016-08-27] MEDS ORDERED: PROAMAT5 PO (11:49)
[2016-08-27] MEDS ORDERED: [UNRECOGNIZED DRUG - OTHER] (11:55)
[2016-08-27] MEDS ORDERED: MEDS (12:22)
[2016-08-27] MEDS ORDERED: X5 PO (12:27)
[2016-10-08] MEDS ORDERED: L20 PO (21:55)
[2016-10-08] MEDS ORDERED: PROAMATINE10 MG PO (21:56)
[2016-10-08] MEDS ORDERED: TOPXL25 PO (21:56)
[2016-10-08] MEDS ORDERED: NITROSTAT0.4 MG SL (21:57)
[2016-10-08] MEDS ORDERED: PLAVIX PO (21:57)
[2016-10-08] MEDS ORDERED: RAN500 PO (21:58)
[2016-10-08] MEDS ORDERED: ZETIA PO (21:58)
[2016-10-08] MEDS ORDERED: CRESTOR10 PO (21:58)
[2016-10-08] MEDS ORDERED: KAPIDEX60 MG PO (21:59)
[2016-10-08] MEDS ORDERED: ADVAIR250 INH (21:59)
[2016-10-08] MEDS ORDERED: FLOMAX4 PO (21:59)
[2016-10-08] MEDS ORDERED: VENTOLIN HFA INH (22:00)
[2016-10-08] MEDS ORDERED: SPIRIVA RESPIMAT INH (22:00)
[2016-10-08] MEDS ORDERED: X5 PO ×2 (22:01→22:02)
[2016-10-08] MEDS ORDERED: TESTOST CYP100 MG/ML IM (22:07)
[2016-10-08] MEDS ORDERED: HALF81 PO (22:11)
[2016-10-08] MEDS ORDERED: ALBUTEROL0.083 % INH (22:11)
[2016-10-08] MEDS ORDERED: VITAMIN D31000 UNIT PO (22:12)
[2016-10-08] MEDS ORDERED: PROBIOTIC PO (22:12)
[2016-10-08] MEDS ORDERED: [UNRECOGNIZED DRUG - OTHER] PO (22:14)
[2016-10-08] MEDS ORDERED: MAGOX4 PO (22:14)
[2016-10-08] MEDS ORDERED: MYRBETRIQ50 MG PO (22:16)
[2016-10-08] MEDS ORDERED: SEPTRA DS1 TAB PO (22:17)
[2016-10-08] MEDS ORDERED: LAM250 PO (22:18)
[2016-10-18] MEDS ORDERED: DSS PO (15:30)
[2016-10-18] MEDS ORDERED: FLUCON2 PO (15:30)
[2016-10-18] MEDS ORDERED: NEUR100 PO (15:32)
[2016-10-18] MEDS ORDERED: CORTOTSUSP OT (15:38)
[2016-10-18] MEDS ORDERED: MIRALAX POWDER1 PKT PO (15:38)
[2016-10-18] MEDS ORDERED: FLORASTOR250 MG PO (15:39)
[2016-10-18] MEDS ORDERED: SENTAB PO (15:40)
[2016-10-18] MEDS ORDERED: VALTREX5 PO (15:42)
[2016-10-18] MEDS ORDERED: P10 PO ×3 (15:45→15:57)
[2016-10-18] MEDS ORDERED: P20 PO ×2 (15:52→15:56)
[2016-10-18] MEDS ORDERED: P5 PO (15:58)
== END 2016-04-12 15:58 | disposition home or self-care (01) | DRG 190 ==
LOC: ER 23:34 → 4SO 04-07 06:33
PROVIDERS: Internal Medicine; Specialist
DX: J44.0 Chronic obstructive pulmonary disease with (acute) lower respiratory infection (principal); J96.00 Acute respiratory failure, unspecified whether with hypoxia or hypercapnia; N17.9 Acute kidney failure, unspecified; I50.22 Chronic systolic (congestive) heart failure; I13.0 Hypertensive heart and chronic kidney disease with heart failure and stage 1 through stage 4 chronic kidney disease, or unspecified chronic kidney disease; J44.1 Chronic obstructive pulmonary disease with (acute) exacerbation; I25.10 Atherosclerotic heart disease of native coronary artery without angina pectoris; N18.3 Chronic kidney disease, stage 3 (moderate); E78.5 Hyperlipidemia, unspecified; I73.9 Peripheral vascular disease, unspecified; K21.9 Gastro-esophageal reflux disease without esophagitis; F31.9 Bipolar disorder, unspecified; R13.10 Dysphagia, unspecified; I25.2 Old myocardial infarction; Z95.1 Presence of aortocoronary bypass graft; Z95.5 Presence of coronary angioplasty implant and graft; Z98.890 Other specified postprocedural states; Z90.2 Acquired absence of lung [part of]; Z85.118 Personal history of other malignant neoplasm of bronchus and lung; Z82.49 Family history of ischemic heart disease and other diseases of the circulatory system; Z83.3 Family history of diabetes mellitus; J20.9 Acute bronchitis, unspecified; H91.90 Unspecified hearing loss, unspecified ear; K44.9 Diaphragmatic hernia without obstruction or gangrene; D64.9 Anemia, unspecified
CPT/HCPCS: 36600; 71010; 71020; 71250; 80048; 80053; 80069; 82570; 82805; 83735; 83880; 83935; 84145; 84300; 84484; 85025; 85610; 85730; 87040; 87070; 87205; 87449; 87804; 93005; 94640; 94668; 96365; 96372; 96374; 96375; 99285; A9270-GY; G0378; J1956; J2930

== ENCOUNTER 2016-04-30 05:32 | Day surgery (SDC) | payer MEDICARE, OTHER ==
--- NOTE | ~2016-04-30 | EGD ---
EGD REPORT [facility] [address] [address] NAME: ANAHY DAVIDSON : [birth year] STATUS : REG [facility]#: [id number] AGE: 70 ADM/REG DATE : 04/30/16 MR#: [id number] REPORT SERV DATE: 04/30/16 DICTATED BY: ALLA SNYDER DATE: 04/30/16 REPORT STATUS : Draft TRANSCRIBED BY: [facility] DATE: 04/30/16 Endoscopy Center Patient Name: Anahy Davidson Date of : 1945 Attending MD: ALLA SNYDER, Procedure Date No Time: 04/30/2016 Procedure: Upper GI endoscopy Indications: Follow-up of Moreau's esophagus Referring MD: FABIO SAGE Medicines: Monitored Anesthesia Care Complications: No immediate complications. Estimated blood loss: None. Procedure: Pre-Anesthesia Assessment: - ASA Grade Assessment: III - A patient with severe systemic disease. After obtaining informed consent, the endoscope was passed under direct vision. Throughout the procedure, the patient's blood pressure, pulse, and oxygen saturations were monitored continuously. The GIF [id number] was introduced through the mouth, and advanced to the second part of duodenum. The upper GI endoscopy was accomplished without difficulty. The patient tolerated the procedure well. Findings: The esophagus and gastroesophageal junction were examined with white light. Moreau's esophagus was present. Two tongues of salmon-colored mucosa were present. The maximum longitudinal extent of these esophageal mucosal changes was 1 cm in length. Mucosa was biopsied with a cold jumbo forceps for histology in a targeted manner at intervals of 1 cm. The following biopsy specimens were sent to pathology: targeted biopsy from the distal third of the esophagus (1st Bottle). One specimen bottle was sent to pathology. The exam of the esophagus was otherwise normal. The stomach was normal. The cardia and gastric fundus were normal on retroflexion. The examined duodenum was normal. Impression: - Moreau's esophagus. Biopsied. - Normal stomach. - Normal examined duodenum. Recommendation: - Patient has a contact number available for emergencies. The signs and symptoms of potential delayed complications were discussed with the patient. Return to normal activities tomorrow. Written discharge EGD REPORT [address] [address] NAME: ANAHY DAVIDSON : [birth year] STATUS : [place] [facility] [place]#: [id number] AGE: 70 ADM/REG DATE : 04/30/16 MR#: [id number] REPORT SERV DATE: 04/30/16 DICTATED BY: ALLA SNYDER DATE: 04/30/16 REPORT STATUS : Draft TRANSCRIBED BY: [facility] DATE: 04/30/16 instructions were provided to the patient. - Return to previous diet. - Patient medication history reviewed. Patient is appropriately not taking any medications. - Continue present medications. - Repeat the upper endoscopy for surveillance based on pathology results. Procedure Code(s): --- Professional --- 11693, Esophagogastroduodenoscopy, flexible, transoral; with biopsy, single or multiple Diagnosis Code(s): --- Professional --- K22.70, Moreau's esophagus without dysplasia CPT copyright 2013 [employer]. All rights reserved. The codes documented in this report are preliminary and upon helper/driver review may be revised to meet current compliance requirements. ALLA SNYDER, 04/30/2016 7:30 AM Number of Addenda: 0 Note Initiated On: 04/30/2016 6:59 AM [address] [address]
[~2016-04-30 05:32] MED LIST changes: +APRES50 PO
[2016-07-20] MEDS ORDERED: COREG3 PO (14:03)
[2016-07-20] MEDS ORDERED: L40 PO (14:03)
[2016-07-20] MEDS ORDERED: PLAVIX PO (14:05)
[2016-07-20] MEDS ORDERED: NITROSTAT0.4 MG SL (14:06)
[2016-07-20] MEDS ORDERED: CRESTOR10 PO (14:07)
[2016-07-20] MEDS ORDERED: ZETIA PO (14:07)
[2016-07-20] MEDS ORDERED: RAN500 PO (14:07)
[2016-07-20] MEDS ORDERED: KAPIDEX60 MG PO (14:08)
[2016-07-20] MEDS ORDERED: TIAZAC PO (14:08)
[2016-07-20] MEDS ORDERED: FLOMAX4 PO (14:09)
[2016-07-20] MEDS ORDERED: ADVAIR250 INH (14:10)
[2016-07-20] MEDS ORDERED: SPIRIVA RESPIMAT INH (14:10)
[2016-07-20] MEDS ORDERED: VENTOLIN HFA INH (14:11)
[2016-07-20] MEDS ORDERED: X5 PO ×2 (14:12→14:13)
[2016-07-20] MEDS ORDERED: TESTOSTERONE INJ SC (14:15)
[2016-07-20] MEDS ORDERED: VITAMIN D31000 UNIT PO (14:16)
[2016-07-20] MEDS ORDERED: ASAB PO (14:16)
[2016-07-20] MEDS ORDERED: ALBUTEROL0.083 % INH (14:16)
[2016-07-20] MEDS ORDERED: ALIGN4 MG PO (14:17)
[2016-07-20] MEDS ORDERED: MAGOX4 PO (14:19)
[2016-07-20] MEDS ORDERED: FOLBEE PO (14:19)
[2016-07-27] MEDS ORDERED: L40 PO (10:11)
[2016-07-27] MEDS ORDERED: COREG6 PO (10:11)
[2016-08-27] MEDS ORDERED: TOPXL25 PO (11:48)
[2016-08-27] MEDS ORDERED: PROAMAT5 PO (11:49)
[2016-08-27] MEDS ORDERED: [UNRECOGNIZED DRUG - OTHER] (11:55)
[2016-08-27] MEDS ORDERED: MEDS (12:22)
[2016-08-27] MEDS ORDERED: X5 PO (12:27)
[2016-10-08] MEDS ORDERED: L20 PO (21:55)
[2016-10-08] MEDS ORDERED: PROAMATINE10 MG PO (21:56)
[2016-10-08] MEDS ORDERED: TOPXL25 PO (21:56)
[2016-10-08] MEDS ORDERED: PLAVIX PO (21:57)
[2016-10-08] MEDS ORDERED: NITROSTAT0.4 MG SL (21:57)
[2016-10-08] MEDS ORDERED: CRESTOR10 PO (21:58)
[2016-10-08] MEDS ORDERED: ZETIA PO (21:58)
[2016-10-08] MEDS ORDERED: RAN500 PO (21:58)
[2016-10-08] MEDS ORDERED: ADVAIR250 INH (21:59)
[2016-10-08] MEDS ORDERED: FLOMAX4 PO (21:59)
[2016-10-08] MEDS ORDERED: KAPIDEX60 MG PO (21:59)
[2016-10-08] MEDS ORDERED: VENTOLIN HFA INH (22:00)
[2016-10-08] MEDS ORDERED: SPIRIVA RESPIMAT INH (22:00)
[2016-10-08] MEDS ORDERED: X5 PO ×2 (22:01→22:02)
[2016-10-08] MEDS ORDERED: TESTOST CYP100 MG/ML IM (22:07)
[2016-10-08] MEDS ORDERED: ALBUTEROL0.083 % INH (22:11)
[2016-10-08] MEDS ORDERED: HALF81 PO (22:11)
[2016-10-08] MEDS ORDERED: PROBIOTIC PO (22:12)
[2016-10-08] MEDS ORDERED: VITAMIN D31000 UNIT PO (22:12)
[2016-10-08] MEDS ORDERED: MAGOX4 PO (22:14)
[2016-10-08] MEDS ORDERED: [UNRECOGNIZED DRUG - OTHER] PO (22:14)
[2016-10-08] MEDS ORDERED: MYRBETRIQ50 MG PO (22:16)
[2016-10-08] MEDS ORDERED: SEPTRA DS1 TAB PO (22:17)
[2016-10-08] MEDS ORDERED: LAM250 PO (22:18)
[2016-10-18] MEDS ORDERED: DSS PO (15:30)
[2016-10-18] MEDS ORDERED: FLUCON2 PO (15:30)
[2016-10-18] MEDS ORDERED: NEUR100 PO (15:32)
[2016-10-18] MEDS ORDERED: CORTOTSUSP OT (15:38)
[2016-10-18] MEDS ORDERED: MIRALAX POWDER1 PKT PO (15:38)
[2016-10-18] MEDS ORDERED: FLORASTOR250 MG PO (15:39)
[2016-10-18] MEDS ORDERED: SENTAB PO (15:40)
[2016-10-18] MEDS ORDERED: VALTREX5 PO (15:42)
[2016-10-18] MEDS ORDERED: P10 PO ×3 (15:45→15:57)
[2016-10-18] MEDS ORDERED: P20 PO ×2 (15:52→15:56)
[2016-10-18] MEDS ORDERED: P5 PO (15:58)
== END 2016-04-30 23:59 | disposition home health service (06) ==
LOC: DMU 05:32
PROVIDERS: Internal Medicine Gastroenterology
PROC: 0DB58ZX Excision of Esophagus, Via Natural or Artificial Opening Endoscopic, Diagnostic (ICD-10-PCS; principal; 2016-04-30 07:00)
DX: K20.9 Esophagitis, unspecified (principal); I13.0 Hypertensive heart and chronic kidney disease with heart failure and stage 1 through stage 4 chronic kidney disease, or unspecified chronic kidney disease; I25.10 Atherosclerotic heart disease of native coronary artery without angina pectoris; I73.9 Peripheral vascular disease, unspecified; J44.9 Chronic obstructive pulmonary disease, unspecified; I50.9 Heart failure, unspecified; N18.3 Chronic kidney disease, stage 3 (moderate); F31.9 Bipolar disorder, unspecified; K21.9 Gastro-esophageal reflux disease without esophagitis; D64.9 Anemia, unspecified; Z95.5 Presence of coronary angioplasty implant and graft; Z85.47 Personal history of malignant neoplasm of testis; Z86.718 Personal history of other venous thrombosis and embolism; Z98.890 Other specified postprocedural states
CPT/HCPCS: 88305

== ENCOUNTER 2016-07-22 09:30 | Inpatient (IN) | payer MEDICARE, OTHER ==
[2016-07-20 14:22] LABS: BASOPHILS 0.6 %; BASOPHILS ABSOLUTE 0.03 10/3/uL (0.0-0.16); EOSINOPHILS 1.3 %; EOSINOPHILS ABSOLUTE 0.07 10/3/uL (0.0-0.53); ER CBC TAT 0 Hrs 08 Mins; HEMATOCRIT 36.8 % (40.0-51.0); HEMOGLOBIN 12.5 g/dL (13.6-17.8); LYMPHOCYTES ABSOLUTE 1.31 10/3/uL (0.67-4.30); MANUAL DIFF NO %; MEAN CORPUSCULAR HEMOGLOB 28.7 pg (26.0-34.0); MEAN CORPUSCULAR VOLUME 84.6 fL (80-100); MEAN PLATELET VOLUME 8.2 fL (9.2-13.0); MONOCYTES 10.9 %; MONOCYTES ABSOLUTE 0.57 10/3/uL (0.21-1.20); NEUTROPHILS 62.2 %; NEUTROPHILS ABSOLUTE 3.27 10/3/uL (2.02-8.40); PLATELET COUNT 194 10/3/uL (150-400); RBC DISTRIBUTION WIDTH 15.3 % (12.0-16.0); RED CELL COUNT 4.35 10/6/uL (4.7-6.1); WHITE BLOOD CELLS 5.3 10/3/uL (4.5-10.5)
[2016-07-20 14:29] LABS: INTERNATIONAL NORMAL RATI 1.1 UNITS (-); PARTIAL THROMBO TIME 27.7 SEC (22.5-37.2); PROTIME (NOT ORD) 13.7 SEC (12.0-14.5)
[2016-07-20 14:38] LABS: BUN (BLOOD UREA NITROGEN) 19 MG/DL (6-23); CALCIUM, SERUM 8.8 MG/DL (8.5-10.4); CHEST PAIN PROFILE TAT 0 Hrs 24 Mins; CHLORIDE, SERUM 97 MMOL/L (96-112); CO2 (CARBON DIOXIDE) 32 MMOL/L (24-34); CREATININE 1.56 MG/DL (0.70-1.30); GFR AFRICAN AMERICAN 52 ML/MIN (>=60); GFR NON AFRICAN AMERICAN 45 ML/MIN (>=60); GLUCOSE, SERUM 98 MG/DL (60-99); POTASSIUM, SERUM 4.2 MMOL/L (3.5-5.3); SODIUM, SERUM 133 MMOL/L (135-148); TROPONIN I <0.02 NG/ML (<0.05)
[2016-07-20 21:00] LABS: ALBUMIN 3.7 G/DL (3.5-5.0); CPK 286 U/L (0-200); DIRECT BILIRUBIN 0.2 MG/DL (0.0-0.4); FREE T4 1.01 NG/DL (0.76-1.46); INDIRECT BILIRUBIN(NOT ORDER) 0.6 MG/DL (0.1-0.9); SGOT(AST) 24 U/L (5-40); SGPT(ALT) 29 U/L (5-65); TOTAL BILIRUBIN 0.8 MG/DL (0-1.2); TOTAL PROTEIN 7.2 G/DL (6.0-8.5)
[2016-07-20 21:01] LABS: ALKALINE PHOSPHATASE 105 U/L (45-117); CK-MB 4.8 NG/ML; FOLATE 79.3 NG/ML (>5.2); PHOSPHORUS, SERUM 2.4 MG/DL (2.5-4.5)
[2016-07-21 06:50] LABS: BASOPHILS 0.6 %; BASOPHILS ABSOLUTE 0.03 10/3/uL (0.0-0.16); EOSINOPHILS 1.5 %; EOSINOPHILS ABSOLUTE 0.07 10/3/uL (0.0-0.53); HEMATOCRIT 33.7 % (40.0-51.0); HEMOGLOBIN 11.3 g/dL (13.6-17.8); IMMATURE GRANULOCYTES 0.2 %; IMMATURE GRANULOCYTES ABSOLUTE 0.01 10/3/uL (0.0-0.11); LYMPHOCYTES 25.9 %; LYMPHOCYTES ABSOLUTE 1.23 10/3/uL (0.67-4.30); MEAN CORPUS HGB CONC 33.5 g/dL (32.0-36.0); MEAN CORPUSCULAR HEMOGLOB 28.5 pg (26.0-34.0); MEAN CORPUSCULAR VOLUME 85.1 fL (80-100); MEAN PLATELET VOLUME 8.6 fL (9.2-13.0); MONOCYTES 13.5 %; MONOCYTES ABSOLUTE 0.64 10/3/uL (0.21-1.20); NEUTROPHILS 58.3 %; NEUTROPHILS ABSOLUTE 2.76 10/3/uL (2.02-8.40); PLATELET COUNT 192 10/3/uL (150-400); RBC DISTRIBUTION WIDTH 15.5 % (12.0-16.0); RED CELL COUNT 3.96 10/6/uL (4.7-6.1); WHITE BLOOD CELLS 4.7 10/3/uL (4.5-10.5)
[2016-07-21 06:51] LABS: MANUAL DIFF NO %
[2016-07-21 07:15] LABS: ALBUMIN 3.3 G/DL (3.5-5.0); BUN (BLOOD UREA NITROGEN) 19 MG/DL (6-23); CALCIUM, SERUM 8.8 MG/DL (8.5-10.4); CHLORIDE, SERUM 99 MMOL/L (96-112); CO2 (CARBON DIOXIDE) 30 MMOL/L (24-34); CPK 364 U/L (0-200); CREATININE 1.55 MG/DL (0.70-1.30); GFR AFRICAN AMERICAN 52 ML/MIN (>=60); GFR NON AFRICAN AMERICAN 45 ML/MIN (>=60); POTASSIUM, SERUM 4.3 MMOL/L (3.5-5.3); SODIUM, SERUM 132 MMOL/L (135-148); TROPONIN I <0.02 NG/ML (<0.05)
[2016-07-21 07:16] LABS: GLUCOSE, SERUM 75 MG/DL (60-99); PHOSPHORUS, SERUM 3.6 MG/DL (2.5-4.5)
--- NOTE | ~2016-07-22 | HP ---
History And Physical [place] [id number] [facility] [place]. [address] NAME: ANAHY COTTER : [birth year] STATUS : ADM Марина PAT#: [id number] AGE: 71 ADM/REG DATE : 07/20/16 MR#: [id number] REPORT SERV DATE: 07/20/16 DICTATED BY: ROLA GUTIERRES DATE: 07/20/16 REPORT STATUS : Draft TRANSCRIBED BY: MODL DATE: 07/20/16 DATE OF ADMISSION: 07/20/2016 CHIEF COMPLAINT: Passing out, syncope. HISTORY OF PRESENT ILLNESS: History of present illness obtained from the patient and the patient's family present at bedside and emergency room documents. Also, prior medical records available to us were thoroughly reviewed. According to the information available, the patient is a pleasant 71-year-old white man with a complex and complicated past medical history including but not limited to CHF, systolic dysfunction, last ejection fraction around 30%-35% according to prior medical records; history of coronary artery disease; COPD, not on home oxygen, who comes into the emergency room because of "passing out and recent falls." The patient apparently has been seen by his laborer ammunition assembly, Dr. Dick, this past , five days ago, for complaints of recurrent falling, weakness. The patient apparently falling without a warning backwards or falling forwards with unsteady gait. As per the patient's family, it seems that his "medications were decreased," I am uncertain if the present medications are the most recent/updated with the above mentioned changes. Nevertheless, last episode of falling was on Tuesday when he fell forward. No warning. No "prodromal symptoms" such as palpitations, diaphoresis, lightheadedness, or chest pain. No significant trauma noticed throughout all of these falling episodes for the last month. The patient today had a syncopal episode when he went to the bathroom and apparently passed out. Family found him lying on the floor with apparently urinary incontinence. No seizure-like activity. No postictal state reported or confusion. No head trauma. No warning as well such as prodromal symptom such as chest pain, palpitations, diaphoresis. The patient's family apparently called Dr. Dick, his laborer ammunition assembly again, and he was recommended to come to the emergency room for further management and evaluation. In the emergency room, the patient was investigated, was noticed to be bradycardic in the lower 50s with sinus bradycardia. No initial orthostatic vital signs were checked, but the patient received 1 L of normal saline bolus. Further investigation failed to reveal any significant acute pathology or finding. Therefore, because of the above presentation as well as his history and findings, the patient was referred to the Hospitalist Service for further management and evaluation. PAST MEDICAL HISTORY: Significant for coronary artery disease, status post prior CABG as well as multiple cardiac catheterization. The patient had initial CABG in 1993 with five- vessel disease. History of hypertension; history of chronic systolic CHF, last reported ejection fraction around 30%-35% as per last H and P in 03/2016; history of ischemic cardiomyopathy; peripheral vascular disease; [id number]-gnzdwwag mitral regurgitation; history of recurrent syncopal episodes as per previous H and P and workup. Apparently, etiology unknown at that time. History of peripheral vascular disease with iliac stents and right vertebral artery occlusion. History of GERD with significant Moreau's esophagus, followed closely by Dr. Macdonald, GI specialist. History of COPD, not on home oxygen at this moment. History of prior lung cancer with left upper lobectomy, followed previously by Dr. Matthew and presently by Dr. Sanchez, utility mechanic. History of bipolar disorder, anxiety, and panic attacks. History of hyperlipidemia and dyslipidemia. History of testicular carcinoma with subsequent testosterone hormonal deficiency. History of BPH, reported prostate cancer (?). History And Physical [address] [address] NAME: ANAHY COTTER : [birth year] STATUS : ADM Марина PAT#: [id number] AGE: 71 ADM/REG DATE : 07/20/16 MR#: [id number] REPORT SERV DATE: 07/20/16 DICTATED BY: ROLA GUTIERRES DATE: 07/20/16 REPORT STATUS : Draft TRANSCRIBED BY: MODL DATE: 07/20/16 History of prior skin cancer, right thumb surgically removed, and radiation. PAST SURGICAL HISTORY: Significant for five-vessel CABG in 1993. Iliac stents, arterial stents x2 before 1999. Several cardiac catheterization including cardiac stents x2 in 2006. History of a clinical trial of [facility] with stem cell transplant to the heart in May 2009. History of skin cancer, removed squamous cell carcinoma in 2007 from the right from the arm as well as the right thumb squamous cell carcinoma in 05/2015. History of left testicle removed in 1977. History of left upper lobectomy from a cancer in 2010. Cholecystectomy in 2012. Multiple EGDs and ERCPs with biliary stent as well as multiple EGDs with ablation of the Moreau's esophagus. Actually, the patient is scheduled to see Dr. Macdonald on 07/30/2016. SOCIAL HISTORY: The patient is , one son, retired. He used to smoke one or two packs of cigarettes daily for 45 years, quit in 2007. Alcohol, very rare, social occasions, not significant amount. Denies illicit recreational drug abuse. FAMILY HISTORY: Significant for coronary artery disease at early age. Mother at age 54. Father at age 53. Brother at age 41 of a heart attack. ALLERGIES: NO KNOWN DRUG ALLERGIES. HOME MEDICATIONS: According to the list provided, the patient is supposed to take albuterol MDI one inhalation q.4 hours p.r.n. shortness of breath, use the nebulizer inhalation p.r.n. shortness of breath; Xanax 0.5 mg p.o. several times a day p.r.n. panic attacks and 1.5 mg p.o. at bedtime as scheduled; aspirin 81 mg p.o. at bedtime; Coreg 12.5 mg p.o. b.i.d.; vitamin D3 at 5000 units p.o. daily; Plavix 75 mg p.o. daily; Dexilant 60 mg p.o. b.i.d.; Cardizem CD 120 mg p.o. daily; Zetia 10 mg p.o. at bedtime; Advair Diskus 250/50 one inhalation daily; folic acid and multivitamin (Folbee) one p.o. at bedtime; Lasix 40 mg p.o. daily; magnesium oxide/Mag-Ox 400 mg p.o. daily; Align probiotic mbju-jyg-dxexidr supplement one capsule p.o. at bedtime; nitroglycerin sublingual p.r.n.; Ranexa 500 mg p.o. b.i.d.; Crestor 10 mg p.o. at bedtime; Flomax 0.4 mg p.o. at bedtime; Spiriva Respimat two puff inhalation daily; testosterone injection 400 mg subcu every two months, the last on 07/06/2016. REVIEW OF SYSTEMS: Per H and P, otherwise, negative in all review of systems. Please note, the comprehensive review of system was obtained and pertinent positives were including in the H and P. PHYSICAL EXAMINATION: GENERAL: Pleasant, cooperative, pale, anxious about his condition but not in any particular distress. VITAL SIGNS: Upon arrival in the emergency room, blood pressure 118/56, pulse 64, respiratory rate 18, temperature 98.1, oxygen saturation 99% on room air. HEENT: With bilateral cataracts. Extraocular movements intact. Throat: Mild erythema. No exudate. No signs of tenderness. Atraumatic and normocephalic. NECK: Supple. No JVD. No bruits. No thyromegaly. No lymph nodes. LUNGS: Bilateral air entry with bibasilar dry crackles. Good airway movement. No History And Physical [address] [address] NAME: ANAHY COTTER : [birth year] STATUS : ADM Марина PAT#: [id number] AGE: 71 ADM/REG DATE : 07/20/16 MR#: [id number] REPORT SERV DATE: 07/20/16 DICTATED BY: ROLA GUTIERRES DATE: 07/20/16 REPORT STATUS : Draft TRANSCRIBED BY: PAZ DATE: 07/20/16 wheezing. HEART: Positive S1, S2. Regular rate and rhythm. Bradycardic. Positive mitral regurgitation murmur at the apex. PMI not displaced by palpation. ABDOMEN: Positive bowel sounds. Soft, nontender. No guarding, no hepatosplenomegaly. EXTREMITIES: Decreased range of motion with osteoarthritic changes. No clubbing, no cyanosis, no edema, no calf tenderness. +2 pulses. NEUROLOGIC: Alert and oriented x3. Grossly nonfocal. Cranial nerves 2 through 12 grossly intact. Motor strength 5/5 symmetrical bilateral. Deep tendon reflexes 2/2 symmetrical bilateral. Back with decreased range of motion. No focal localized tenderness. No CVA tenderness. SKIN: No bruises. No rashes. No lacerations. SIGNIFICANT LABORATORY DATA: Chest x-ray (personal reading) showed no acute infiltrate. EKG (personal reading) shows sinus bradycardia at 52 beats per minute. Left anterior hemiblock, old septal VA, no acute ST elevation. Urinalysis is not available, not done. Sodium 133, potassium 4.2, chloride 97, bicarb 32, BUN 19, creatinine 1.56, glucose 98, calcium 8.3, magnesium 2.2. Troponin-I less than 0.02. White cell count 5.3, hemoglobin 12.5, platelet count 194. INR 1.1. ASSESSMENT AND PLAN AND PROBLEM LIST: The patient is a pleasant 71-year-old man, admitted with syncopal episode likely secondary to symptomatic bradycardia. IMPRESSION: 1. Cardiovascular:. a. a. Syncope, likely cardiovascular possibly due to his bradycardia, plus- minus vasovagal component today. The patient with previous falls and unsteady gait for the last month. b. b. Bradycardia, symptomatic, likely medication related. c. c. Hypertension, essential hypertension. d. d. Coronary artery disease, status post prior CABG and cardiac stents. e. e. Congestive heart failure with chronic systolic dysfunction and ischemic cardiomyopathy. Last reported ejection fraction 30%-35%. f. f. Peripheral vascular disease. For all the above, the patient has been admitted on the Hospitalist Service. We are going to start telemetry setting and schedule neurologic checks. Please note, the patient has a previous reported "syncopal spells" of unknown etiology as per 2013 prior H and P. We are going to continue to adjust cardiovascular medications due to his symptomatic bradycardia and consult his laborer ammunition assembly, Dr. Dick, for involvement and consideration of possible medication adjustment and/or EP studies, pacemaker placement. We are going to obtain a 2D echo. We are going to check a vitamin B12, folate, TSH, phosphorus, magnesium, and correct electrolytes as indicated. We are going to check orthostatic vital signs starting in the emergency room, and document as indicated. Use IV hydralazine p.r.n. for an increased blood pressure. Continue aspirin and Plavix antiplatelet therapy. Please note, the patient has contraindications for ARNOLD inhibitor and ARB due to his intolerance and renal dysfunction. 1. Anxiety and panic attacks and reported bipolar disorder by history. Provide emotional support. Continue his Xanax use. IV Ativan prior to the planned MRI/MRA of the brain. History And Physical [address] [address] NAME: ANAHY COTTER : [birth year] STATUS : ADM Марина PAT#: [id number] AGE: 71 ADM/REG DATE : 07/20/16 MR#: [id number] REPORT SERV DATE: 07/20/16 DICTATED BY: NENITAROLA JAIMES DATE: 07/20/16 REPORT STATUS : Draft TRANSCRIBED BY: PAZ DATE: 07/20/16 2. Pulmonary:. a. Chronic obstructive pulmonary disease, presently stable with no acute exacerbation. b. Restrictive lung disease, status post left upper lobectomy for lung cancer. c. Pulmonary nodule being followed closely by utility mechanic, Dr. Sanchez, last CT scan in 06/2016. We are going to continue his bronchodilator therapy and oxygen supplementation as indicated. 3. Chronic kidney disease, stage 3, likely close to baseline. We are going to continue to monitor BUN and creatinine. Continue medications. Avoid nephrotoxic agents. Obtain, a urinalysis. Continue his Flomax due to his reported "prostate problem/BPH.". 4. Anemia, multifactorial, including chronic kidney disease, presently stable. Monitor H and H. 5. Gastroesophageal reflux disease with Moreau's esophagus. Continue higher dose of PPI if possible, Dexilant, and follow up with GI. 6. Recurrent falls and weakness. Obtain orthostatic vital signs. We will obtain an MRI with contrast of the brain. 7. Hyperlipidemia, mixed type. Continue low-cholesterol diet and continue medication. 8. History of testicular carcinoma, status post prior surgery and presently with testosterone deficiency, on supplement. PROGNOSIS: Moderately good for this admission. Discussed with patient and the patient's family present at bedside. Questions were answered in full. Please note, also the written H and P, written orders, and instructions. Please note, the patient is a full code at this moment as discussed with the patient and family at the bedside. RF/PAZ Rola Gutierres M.D. / [id number] CC: Chandler Cannon M.D. Ubaldo Johnston MD Nathan Mull IV, M.D. C. Samuel Ledford, M.D. Joseph Watlington, M.D.
--- NOTE | ~2016-07-22 | CN ---
Consultation Report [facility] [address] [place]. [address] NAME: ANAHY DAVIDSON : [birth year] STATUS : ADM Марина PAT#: [id number] AGE: 71 ADM/REG DATE : 07/20/16 MR#: [id number] REPORT SERV DATE: 07/21/16 DICTATED BY: VIVEK ROBB DATE: 07/21/16 REPORT STATUS : Draft TRANSCRIBED BY: MODL DATE: 07/21/16 CONSULTATION. DATE OF CONSULTATION: Mr. Anahy Bautista is a 71-year-old male, who is admitted for syncope. CVD PHYSICIAN: Georgina Dick M.D. SUPERVISOR LIME: Herbert Mcdonald M.D. HISTORY OF PRESENT ILLNESS: Mr. Davidson unfortunately has a long history of recurrent syncopal episodes. This month alone he has had four episodes of falling. He has not during these episodes, however, passed out. Yesterday, he returns to the dentist's office and was sitting in his living room when he went to the bathroom. He passed out completely, fallen to the floor. No injuries were sustained. He had no loss of bowel or bladder control. Afterwards, he was fully conscious. REVIEW OF SYSTEMS: Negative for chest pain, chest discomfort, dyspnea, or palpitations. PAST MEDICAL HISTORY: 1. Ischemic cardiomyopathy, 33%. 2. History of coronary artery bypass grafting. 3. Hypertension, longstanding. 4. Hyperlipidemia, intolerant to all statins. 5. Status post lung cancer status post lobectomy. 6. History of chronic kidney disease with baseline creatinine of 1.5. 7. Peripheral vascular disease with status post iliac stents. 8. COPD with O2 dependency in the evening. SOCIAL HISTORY: His is in attendance. He does not drink or smoke at this time. FAMILY HISTORY: Negative for early heart disease. PHYSICAL EXAMINATION: VITAL SIGNS: Blood pressure 105/55, pulse is 55 and regular, and he is afebrile. GENERAL: Resting comfortably, nutritional status appears adequate. EYES: PERRLA. LUNGS: No labored use of accessory muscles. Without rales or wheezes. COR: PMI is not displaced. No thrills or heaves. NL S1 and S2. No S3, murmur, click or rub. PULSES: Carotids without bruits. ABD: +BS, nontender. EXT: No cyanosis, clubbing or edema. Consultation Report [facility] [address] [place]. [address] NAME: ANAHY DAVIDSON : [birth year] STATUS : ADM Марина PAT#: [id number] AGE: 71 ADM/REG DATE : 07/20/16 MR#: [id number] REPORT SERV DATE: 07/21/16 DICTATED BY: VIVEK ROBB DATE: 07/21/16 REPORT STATUS : Draft TRANSCRIBED BY: PAZ DATE: 07/21/16 SKIN: No petechiae. NEURO: Alert and oriented. Does not appear anxious or depressed. LABORATORY EVALUATION: Creatinine is baseline at 1.55. Troponin is negative. Potassium 4.3, sodium is borderline at 132. Hematocrit is depressed at 11.3. ASSESSMENT: Recurrent syncopal episodes. At this time, I am going to discontinue the diltiazem. We will continue the carvedilol at extremely low dose at this time. He is also tolerate atorvastatin which I will continue. MARY KATE/PAZ Vivek Robb M.D. / [id number] CC: Ubaldo Medina M.D.
--- NOTE | ~2016-07-22 | DS ---
Discharge Summary [facility] [address] [place]. [address] NAME: ANAHY COTTER : [birth year] STATUS : DIS IN PAT#: [id number] AGE: 71 ADM/REG DATE : 07/20/16 MR#: [id number] REPORT SERV DATE: 07/23/16 DICTATED BY: CHANDLER ALANIS DATE: 07/22/16 REPORT STATUS : Draft TRANSCRIBED BY: MODL DATE: 07/22/16 ADMISSION DATE: 07/20/2016 DISCHARGE DATE: 07/22/2016 PRINCIPAL DIAGNOSIS: Syncope with multifactorial cause and history of multiple falls. SECONDARY DIAGNOSES: Bradycardia in the setting of chronic systolic congestive heart failure, anxiety state with chronic benzodiazepine use, peripheral neuropathy suspected due to lumbar stenosis, also chronic kidney disease stage 3, history of hypertension, orthostatic intolerance. HISTORY OF PRESENT ILLNESS: Please see Dr. Rosario's dictation on 07/20/2016. HOSPITAL COURSE: Admitted with syncope and multiple falls. Found to have a mild orthostatic gradient of 20 mmHg, ejection fraction was unchanged at 35%. Multiple medications however were found to be suggestive as a source of his syncope particularly in light of bradycardia with low heart rates as low as 45. We stopped from Cardizem, Coreg reduced to 3.125 daily. No hypertensive episodes were given and he was not felt to be a candidate for ARNOLD inhibitor or ARB due to his renal dysfunction. In addition, the patient was found to be on very high dose of benzodiazepines chronically. This was reduced by 0.25 at bedtime with the frequency of p.r.n.'s been also reduced, and he was counseled regarding the high risk of falls particularly in senior citizens taking benzodiazepines. He had not been on any other anxiolytic and while it carried a diagnosis of bipolar disorder, he had not been however on Depakote or lithium and he had been told at a point in the past to stop antipsychotics. There appeared to be no contraindication to SSRI therapy as a review of his psychiatric history revealed a diagnosis more consistent with generalized anxiety disorder than a bipolar affective disorder, with no history of reynaldo having occurred per his report. He was started on Paxil 10 mg at bedtime and understood the plan. The patient also had been diagnosed with neuropathy. He had an absence of proprioceptive sense on physical exam. He had not received a diagnosis or a cause of neuropathy; however, given his chronic low back pain, it was felt that spinal disease was a high probability. He would follow up with his neurologist. Most importantly, however he would follow up with Cardiology while heart rate had increased. They wanted to see him as an outpatient regarding possible future evaluation for a pacemaker does not appear indicated at this time. He was asymptomatic. He was able to walk in the halls without difficulty and he was felt safe to discharge by 07/22/2016. He went home in satisfactory condition with low-salt, low-fat diet. Activity as tolerated. Following up with Dr. Dick in one to two weeks, with Dr. Ernesto Cheema in one to two weeks, and Dr. Michelle, his psychiatrist as previously scheduled. Continuing Paxil as mentioned, Xanax was reduced to 1.25 at bedtime with 0.5 daily p.r.n., magnesium, Plavix, vitamin D, vitamins, to continue his inhalers, Lipitor, Ranexa, Florastor, Zetia, acid blockers, carvedilol at a reduced dose of 3.125 b.i.d., aspirin. Greater than 30 minutes were spent in care of this patient on discharge planning on discharge day. Discharge Summary [address] [address] NAME: ANAHY COTTER : [birth year] STATUS : DIS IN PAT#: [id number] AGE: 71 ADM/REG DATE : 07/20/16 MR#: [id number] REPORT SERV DATE: 07/23/16 DICTATED BY: CHANDLER ALANIS DATE: 07/22/16 REPORT STATUS : Draft TRANSCRIBED BY: PAZ DATE: 07/22/16 DICTATED BY: Chandler Alanis M.D. Yvonne/PAZ Chandler Alanis M.D. / [id number] CC: Ubaldo Medina M.D. C. Samuel Ledford, M.D. G Michael Ozborn, M.D.
[2016-07-22 07:22] LABS: CALCIUM, SERUM 8.8 MG/DL (8.5-10.4); CHLORIDE, SERUM 98 MMOL/L (96-112); POTASSIUM, SERUM 3.8 MMOL/L (3.5-5.3); SODIUM, SERUM 127 MMOL/L (135-148)
[2016-07-22 07:31] LABS: BUN (BLOOD UREA NITROGEN) 18 MG/DL (6-23); CO2 (CARBON DIOXIDE) 30 MMOL/L (24-34); CREATININE 1.45 MG/DL (0.70-1.30); GFR AFRICAN AMERICAN 57 ML/MIN (>=60); GFR NON AFRICAN AMERICAN 49 ML/MIN (>=60); GLUCOSE, SERUM 83 MG/DL (60-99); TROPONIN I <0.02 NG/ML (<0.05)
[~2016-07-22 09:30] MED LIST changes: +ALBUTEROL0.083 % INH; +COREG3 PO; +FLOMAX4 PO; +FOLBEE PO; +TESTOSTERONE INJ SC; +TIAZAC PO
[2016-07-22] MEDS ORDERED: PAX10 PO (12:02)
[2016-07-22] MEDS ORDERED: LIPOTRIAD1 CAP PO (12:04)
[2016-07-27] MEDS ORDERED: COREG6 PO (10:11)
[2016-07-27] MEDS ORDERED: L40 PO (10:11)
[2016-08-27] MEDS ORDERED: TOPXL25 PO (11:48)
[2016-08-27] MEDS ORDERED: PROAMAT5 PO (11:49)
[2016-08-27] MEDS ORDERED: [UNRECOGNIZED DRUG - OTHER] (11:55)
[2016-08-27] MEDS ORDERED: MEDS (12:22)
[2016-08-27] MEDS ORDERED: X5 PO (12:27)
[2016-10-08] MEDS ORDERED: L20 PO (21:55)
[2016-10-08] MEDS ORDERED: PROAMATINE10 MG PO (21:56)
[2016-10-08] MEDS ORDERED: TOPXL25 PO (21:56)
[2016-10-08] MEDS ORDERED: NITROSTAT0.4 MG SL (21:57)
[2016-10-08] MEDS ORDERED: PLAVIX PO (21:57)
[2016-10-08] MEDS ORDERED: ZETIA PO (21:58)
[2016-10-08] MEDS ORDERED: CRESTOR10 PO (21:58)
[2016-10-08] MEDS ORDERED: RAN500 PO (21:58)
[2016-10-08] MEDS ORDERED: KAPIDEX60 MG PO (21:59)
[2016-10-08] MEDS ORDERED: ADVAIR250 INH (21:59)
[2016-10-08] MEDS ORDERED: FLOMAX4 PO (21:59)
[2016-10-08] MEDS ORDERED: SPIRIVA RESPIMAT INH (22:00)
[2016-10-08] MEDS ORDERED: VENTOLIN HFA INH (22:00)
[2016-10-08] MEDS ORDERED: X5 PO ×2 (22:01→22:02)
[2016-10-08] MEDS ORDERED: TESTOST CYP100 MG/ML IM (22:07)
[2016-10-08] MEDS ORDERED: HALF81 PO (22:11)
[2016-10-08] MEDS ORDERED: ALBUTEROL0.083 % INH (22:11)
[2016-10-08] MEDS ORDERED: VITAMIN D31000 UNIT PO (22:12)
[2016-10-08] MEDS ORDERED: PROBIOTIC PO (22:12)
[2016-10-08] MEDS ORDERED: [UNRECOGNIZED DRUG - OTHER] PO (22:14)
[2016-10-08] MEDS ORDERED: MAGOX4 PO (22:14)
[2016-10-08] MEDS ORDERED: MYRBETRIQ50 MG PO (22:16)
[2016-10-08] MEDS ORDERED: SEPTRA DS1 TAB PO (22:17)
[2016-10-08] MEDS ORDERED: LAM250 PO (22:18)
[2016-10-18] MEDS ORDERED: FLUCON2 PO (15:30)
[2016-10-18] MEDS ORDERED: DSS PO (15:30)
[2016-10-18] MEDS ORDERED: NEUR100 PO (15:32)
[2016-10-18] MEDS ORDERED: CORTOTSUSP OT (15:38)
[2016-10-18] MEDS ORDERED: MIRALAX POWDER1 PKT PO (15:38)
[2016-10-18] MEDS ORDERED: FLORASTOR250 MG PO (15:39)
[2016-10-18] MEDS ORDERED: SENTAB PO (15:40)
[2016-10-18] MEDS ORDERED: VALTREX5 PO (15:42)
[2016-10-18] MEDS ORDERED: P10 PO ×3 (15:45→15:57)
[2016-10-18] MEDS ORDERED: P20 PO ×2 (15:52→15:56)
[2016-10-18] MEDS ORDERED: P5 PO (15:58)
== END 2016-07-22 15:58 | disposition home or self-care (01) | DRG 312 ==
LOC: 1SO 09:30 → ER 14:12
PROVIDERS: Emergency Medicine; Internal Medicine
DX: R55 Syncope and collapse (principal); I13.0 Hypertensive heart and chronic kidney disease with heart failure and stage 1 through stage 4 chronic kidney disease, or unspecified chronic kidney disease; I50.22 Chronic systolic (congestive) heart failure; I95.2 Hypotension due to drugs; Z99.81 Dependence on supplemental oxygen; N18.3 Chronic kidney disease, stage 3 (moderate); J44.9 Chronic obstructive pulmonary disease, unspecified; I25.5 Ischemic cardiomyopathy; I73.9 Peripheral vascular disease, unspecified; I25.10 Atherosclerotic heart disease of native coronary artery without angina pectoris; I34.0 Nonrheumatic mitral (valve) insufficiency; K21.9 Gastro-esophageal reflux disease without esophagitis; Z90.2 Acquired absence of lung [part of]; E78.5 Hyperlipidemia, unspecified; R00.1 Bradycardia, unspecified; R29.6 Repeated falls; F41.1 Generalized anxiety disorder; G89.29 Other chronic pain; M54.5 Low back pain; D63.1 Anemia in chronic kidney disease; M48.06 Spinal stenosis, lumbar region; T42.4X5A Adverse effect of benzodiazepines, initial encounter; T46.1X5A Adverse effect of calcium-channel blockers, initial encounter; T44.7X5A Adverse effect of beta-adrenoreceptor antagonists, initial encounter; W18.30XA Fall on same level, unspecified, initial encounter; Z79.82 Long term (current) use of aspirin; Z79.02 Long term (current) use of antithrombotics/antiplatelets; Z79.899 Other long term (current) drug therapy; Z87.891 Personal history of nicotine dependence; I25.2 Old myocardial infarction; Z91.81 History of falling; Z95.1 Presence of aortocoronary bypass graft; Z98.61 Coronary angioplasty status; Z85.118 Personal history of other malignant neoplasm of bronchus and lung; Z85.828 Personal history of other malignant neoplasm of skin; Z85.47 Personal history of malignant neoplasm of testis; Z89.011 Acquired absence of right thumb; Z90.79 Acquired absence of other genital organ(s)
CPT/HCPCS: 70551; 71010; 80048; 80069; 80076; 82533; 82550; 82553; 82607; 82746; 83735; 84100; 84439; 84443; 84481; 84484; 85025; 85610; 85730; 93005; 94640; 97161-GP; 99285; A9270-GY; G8978-CH-GP; G8979-CH-GP; G8980-CH-GP

== ENCOUNTER 2016-07-25 22:20 | Emergency (ER) | payer MEDICARE, OTHER ==
[~2016-07-25 22:20] MED LIST changes: +LIPOTRIAD1 CAP PO; +PAX10 PO
[2016-07-25 23:59] LABS: BASOPHILS 0.5 %; BASOPHILS ABSOLUTE 0.03 10/3/uL (0.0-0.16); EOSINOPHILS 1.3 %; EOSINOPHILS ABSOLUTE 0.08 10/3/uL (0.0-0.53); ER CBC TAT 0 Hrs 03 Mins; HEMATOCRIT 33.8 % (40.0-51.0); HEMOGLOBIN 11.8 g/dL (13.6-17.8); IMMATURE GRANULOCYTES 0.2 %; IMMATURE GRANULOCYTES ABSOLUTE 0.01 10/3/uL (0.0-0.11); LYMPHOCYTES 20.1 %; LYMPHOCYTES ABSOLUTE 1.26 10/3/uL (0.67-4.30); MEAN CORPUS HGB CONC 34.9 g/dL (32.0-36.0); MEAN CORPUSCULAR HEMOGLOB 28.5 pg (26.0-34.0); MEAN PLATELET VOLUME 8.4 fL (9.2-13.0); MONOCYTES ABSOLUTE 0.88 10/3/uL (0.21-1.20); NEUTROPHILS 63.9 %; NEUTROPHILS ABSOLUTE 4.02 10/3/uL (2.02-8.40); PLATELET COUNT 168 10/3/uL (150-400); RBC DISTRIBUTION WIDTH 14.9 % (12.0-16.0); RED CELL COUNT 4.14 10/6/uL (4.7-6.1); WHITE BLOOD CELLS 6.3 10/3/uL (4.5-10.5)
[2016-07-26 00:01] LABS: MANUAL DIFF NO %; MEAN CORPUSCULAR VOLUME 81.6 fL (80-100)
[2016-07-26 00:08] LABS: INTERNATIONAL NORMAL RATI 1.1 UNITS (-); PARTIAL THROMBO TIME 29.5 SEC (22.5-37.2); PROTIME (NOT ORD) 13.9 SEC (12.0-14.5)
[2016-07-26 00:18] LABS: BUN (BLOOD UREA NITROGEN) 15 MG/DL (6-23); CALCIUM, SERUM 8.9 MG/DL (8.5-10.4); CHEST PAIN PROFILE TAT 0 Hrs 22 Mins; CHLORIDE, SERUM 89 MMOL/L (96-112); CO2 (CARBON DIOXIDE) 28 MMOL/L (24-34); GFR AFRICAN AMERICAN 65 ML/MIN (>=60); GFR NON AFRICAN AMERICAN 56 ML/MIN (>=60); GLUCOSE, SERUM 82 MG/DL (60-99); POTASSIUM, SERUM 4.2 MMOL/L (3.5-5.3); SODIUM, SERUM 128 MMOL/L (135-148); TROPONIN I <0.02 NG/ML (<0.05)
[2016-07-27] MEDS ORDERED: L40 PO (10:11)
[2016-07-27] MEDS ORDERED: COREG6 PO (10:11)
[2016-08-27] MEDS ORDERED: TOPXL25 PO (11:48)
[2016-08-27] MEDS ORDERED: PROAMAT5 PO (11:49)
[2016-08-27] MEDS ORDERED: [UNRECOGNIZED DRUG - OTHER] (11:55)
[2016-08-27] MEDS ORDERED: MEDS (12:22)
[2016-08-27] MEDS ORDERED: X5 PO (12:27)
[2016-10-08] MEDS ORDERED: L20 PO (21:55)
[2016-10-08] MEDS ORDERED: PROAMATINE10 MG PO (21:56)
[2016-10-08] MEDS ORDERED: TOPXL25 PO (21:56)
[2016-10-08] MEDS ORDERED: NITROSTAT0.4 MG SL (21:57)
[2016-10-08] MEDS ORDERED: PLAVIX PO (21:57)
[2016-10-08] MEDS ORDERED: ZETIA PO (21:58)
[2016-10-08] MEDS ORDERED: CRESTOR10 PO (21:58)
[2016-10-08] MEDS ORDERED: RAN500 PO (21:58)
[2016-10-08] MEDS ORDERED: FLOMAX4 PO (21:59)
[2016-10-08] MEDS ORDERED: KAPIDEX60 MG PO (21:59)
[2016-10-08] MEDS ORDERED: ADVAIR250 INH (21:59)
[2016-10-08] MEDS ORDERED: VENTOLIN HFA INH (22:00)
[2016-10-08] MEDS ORDERED: SPIRIVA RESPIMAT INH (22:00)
[2016-10-08] MEDS ORDERED: X5 PO ×2 (22:01→22:02)
[2016-10-08] MEDS ORDERED: TESTOST CYP100 MG/ML IM (22:07)
[2016-10-08] MEDS ORDERED: ALBUTEROL0.083 % INH (22:11)
[2016-10-08] MEDS ORDERED: HALF81 PO (22:11)
[2016-10-08] MEDS ORDERED: VITAMIN D31000 UNIT PO (22:12)
[2016-10-08] MEDS ORDERED: PROBIOTIC PO (22:12)
[2016-10-08] MEDS ORDERED: MAGOX4 PO (22:14)
[2016-10-08] MEDS ORDERED: [UNRECOGNIZED DRUG - OTHER] PO (22:14)
[2016-10-08] MEDS ORDERED: MYRBETRIQ50 MG PO (22:16)
[2016-10-08] MEDS ORDERED: SEPTRA DS1 TAB PO (22:17)
[2016-10-08] MEDS ORDERED: LAM250 PO (22:18)
[2016-10-18] MEDS ORDERED: DSS PO (15:30)
[2016-10-18] MEDS ORDERED: FLUCON2 PO (15:30)
[2016-10-18] MEDS ORDERED: NEUR100 PO (15:32)
[2016-10-18] MEDS ORDERED: CORTOTSUSP OT (15:38)
[2016-10-18] MEDS ORDERED: MIRALAX POWDER1 PKT PO (15:38)
[2016-10-18] MEDS ORDERED: FLORASTOR250 MG PO (15:39)
[2016-10-18] MEDS ORDERED: SENTAB PO (15:40)
[2016-10-18] MEDS ORDERED: VALTREX5 PO (15:42)
[2016-10-18] MEDS ORDERED: P10 PO ×3 (15:45→15:57)
[2016-10-18] MEDS ORDERED: P20 PO ×2 (15:52→15:56)
[2016-10-18] MEDS ORDERED: P5 PO (15:58)
== END 2016-07-26 01:14 | disposition home or self-care (01) ==
LOC: ER 22:20
PROVIDERS: Emergency Medicine
DX: I11.0 Hypertensive heart disease with heart failure (principal); Z87.891 Personal history of nicotine dependence; J44.9 Chronic obstructive pulmonary disease, unspecified; D64.9 Anemia, unspecified; K21.9 Gastro-esophageal reflux disease without esophagitis; I25.2 Old myocardial infarction; I50.9 Heart failure, unspecified; I73.9 Peripheral vascular disease, unspecified; Z95.5 Presence of coronary angioplasty implant and graft; Z79.899 Other long term (current) drug therapy; Z79.82 Long term (current) use of aspirin
CPT/HCPCS: 71010; 80048; 83735; 83880; 84484; 85025; 85610; 85730; 93005; 96374; 99284

== ENCOUNTER 2016-07-30 05:43 | Day surgery (SDC) | payer MEDICARE, OTHER ==
--- NOTE | ~2016-07-30 | EGD ---
EGD REPORT [facility] [address] 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 Estimated blood loss: None. Procedure: Pre-Anesthesia Assessment: - ASA Grade Assessment: IV - A patient with severe systemic disease that is a constant threat to life. After obtaining informed consent, the endoscope was passed under direct vision. Throughout the procedure, the patient's blood pressure, pulse, and oxygen saturations were monitored continuously. The GIF [id number] was introduced through the mouth, and advanced to the second part of duodenum. The upper GI endoscopy was accomplished without difficulty. The patient tolerated the procedure well. Findings: The Z-line was irregular and was found 40 cm from the incisors. Biopsies were taken with a cold forceps for histology. Verification of patient identification for the specimen was done. Estimated blood loss was minimal. Normal mucosa was found in the lower third of the esophagus at 39. Biopsies were taken with a cold forceps for histology. Verification of patient identification for the specimen was done. Estimated blood loss was minimal. The stomach was normal. The cardia and gastric fundus were normal on retroflexion. The examined duodenum was normal. The exam of the esophagus was otherwise normal. Impression: - Z-line irregular, 40 cm from the incisors. Biopsied. - Normal mucosa was found in the lower third of the esophagus. Biopsied. - Normal stomach. - Normal examined duodenum. Recommendation: - Patient has a contact number available for EGD REPORT [address] [address] NAME: ANAHY DAVIDSON : [birth year] STATUS : REG [facility] PAT#: [id number] AGE: 71 ADM/REG DATE : 07/30/16 MR#: [id number] REPORT SERV DATE: 07/30/16 DICTATED BY: ALLA SNYDER DATE: 07/30/16 REPORT STATUS : Draft TRANSCRIBED BY: [employer] DATE: 07/30/16 emergencies. The signs and symptoms of potential delayed complications were discussed with the patient. Return to normal activities tomorrow. Written discharge instructions were provided to the patient. - Return to previous diet. - Continue present medications. - Repeat the upper endoscopy in 3 months for surveillance. Procedure Code(s): --- Professional --- 17929, Esophagogastroduodenoscopy, flexible, transoral; with biopsy, single or multiple Diagnosis Code(s): --- Professional --- K22.8, Other specified diseases of esophagus K22.711, Moreau's esophagus with high grade dysplasia Z09, Encounter for follow-up examination after completed treatment for conditions other than malignant neoplasm CPT copyright 2013 [employer]. All rights reserved. The codes documented in this report are preliminary and upon granite cutter review may be revised to meet current compliance requirements. ALLA SNYDER, 07/30/2016 7:47 AM Number of Addenda: 0 Note Initiated On: 07/30/2016 7:32 AM Scope Withdrawal Time 0 hours 0 minutes 0 seconds [id number] [id number]
[2016-08-27] MEDS ORDERED: TOPXL25 PO (11:48)
[2016-08-27] MEDS ORDERED: PROAMAT5 PO (11:49)
[2016-08-27] MEDS ORDERED: [UNRECOGNIZED DRUG - OTHER] (11:55)
[2016-08-27] MEDS ORDERED: MEDS (12:22)
[2016-08-27] MEDS ORDERED: X5 PO (12:27)
[2016-10-08] MEDS ORDERED: L20 PO (21:55)
[2016-10-08] MEDS ORDERED: TOPXL25 PO (21:56)
[2016-10-08] MEDS ORDERED: PROAMATINE10 MG PO (21:56)
[2016-10-08] MEDS ORDERED: NITROSTAT0.4 MG SL (21:57)
[2016-10-08] MEDS ORDERED: PLAVIX PO (21:57)
[2016-10-08] MEDS ORDERED: CRESTOR10 PO (21:58)
[2016-10-08] MEDS ORDERED: RAN500 PO (21:58)
[2016-10-08] MEDS ORDERED: ZETIA PO (21:58)
[2016-10-08] MEDS ORDERED: ADVAIR250 INH (21:59)
[2016-10-08] MEDS ORDERED: FLOMAX4 PO (21:59)
[2016-10-08] MEDS ORDERED: KAPIDEX60 MG PO (21:59)
[2016-10-08] MEDS ORDERED: VENTOLIN HFA INH (22:00)
[2016-10-08] MEDS ORDERED: SPIRIVA RESPIMAT INH (22:00)
[2016-10-08] MEDS ORDERED: X5 PO ×2 (22:01→22:02)
[2016-10-08] MEDS ORDERED: TESTOST CYP100 MG/ML IM (22:07)
[2016-10-08] MEDS ORDERED: ALBUTEROL0.083 % INH (22:11)
[2016-10-08] MEDS ORDERED: HALF81 PO (22:11)
[2016-10-08] MEDS ORDERED: VITAMIN D31000 UNIT PO (22:12)
[2016-10-08] MEDS ORDERED: PROBIOTIC PO (22:12)
[2016-10-08] MEDS ORDERED: [UNRECOGNIZED DRUG - OTHER] PO (22:14)
[2016-10-08] MEDS ORDERED: MAGOX4 PO (22:14)
[2016-10-08] MEDS ORDERED: MYRBETRIQ50 MG PO (22:16)
[2016-10-08] MEDS ORDERED: SEPTRA DS1 TAB PO (22:17)
[2016-10-08] MEDS ORDERED: LAM250 PO (22:18)
[2016-10-18] MEDS ORDERED: FLUCON2 PO (15:30)
[2016-10-18] MEDS ORDERED: DSS PO (15:30)
[2016-10-18] MEDS ORDERED: NEUR100 PO (15:32)
[2016-10-18] MEDS ORDERED: MIRALAX POWDER1 PKT PO (15:38)
[2016-10-18] MEDS ORDERED: CORTOTSUSP OT (15:38)
[2016-10-18] MEDS ORDERED: FLORASTOR250 MG PO (15:39)
[2016-10-18] MEDS ORDERED: SENTAB PO (15:40)
[2016-10-18] MEDS ORDERED: VALTREX5 PO (15:42)
[2016-10-18] MEDS ORDERED: P10 PO ×3 (15:45→15:57)
[2016-10-18] MEDS ORDERED: P20 PO ×2 (15:52→15:56)
[2016-10-18] MEDS ORDERED: P5 PO (15:58)
== END 2016-07-30 23:59 | disposition home or self-care (01) ==
LOC: DMU 05:43
PROVIDERS: Internal Medicine Gastroenterology
PROC: 0DB38ZX Excision of Lower Esophagus, Via Natural or Artificial Opening Endoscopic, Diagnostic (ICD-10-PCS; 2016-07-30)
PROC: 0DB58ZX Excision of Esophagus, Via Natural or Artificial Opening Endoscopic, Diagnostic (ICD-10-PCS; principal; 2016-07-30 07:30)
DX: K22.711 Barrett's esophagus with high grade dysplasia (principal); K20.9 Esophagitis, unspecified; I10 Essential (primary) hypertension; I25.10 Atherosclerotic heart disease of native coronary artery without angina pectoris; I25.2 Old myocardial infarction; D64.9 Anemia, unspecified; J44.9 Chronic obstructive pulmonary disease, unspecified; Z95.5 Presence of coronary angioplasty implant and graft; Z87.442 Personal history of urinary calculi; Z90.49 Acquired absence of other specified parts of digestive tract; Z98.890 Other specified postprocedural states
CPT/HCPCS: 88305